=== PATIENT | male | born 1985 | race Caucasian/White ===

== ENCOUNTER → 2022-01-25 12:32 | Outpatient (CLI) | payer SELFPAY | PROVIDERS: Referring Provider Internal Medicine; Visit Provider Internal Medicine | DX: Z23 Encounter for immunization (principal) | CPT/HCPCS: 90471; 90686 ==

== ENCOUNTER → 2023-01-22 02:17 | Outpatient (CLI) | payer SELFPAY | PROVIDERS: Referring Provider Family Medicine; Visit Provider Family Medicine | DX: Z23 Encounter for immunization (principal) | CPT/HCPCS: 90471; 90686 ==

== ENCOUNTER → 2023-12-26 | Outpatient (CLI) | payer OTHER, SELFPAY | PROVIDERS: Referring Provider Internal Medicine; Visit Provider Internal Medicine | DX: Z23 Encounter for immunization (principal) | CPT/HCPCS: 90471; 90656 ==

== ENCOUNTER → 2024-05-05 09:07 | Outpatient (CLI) | payer OTHER, SELFPAY ==
[2024-05-05 10:14] LABS: Add Manual Diff / Slide Review NO; Basophils Absolute Auto 0 /uL (0-100); Basophils Percent Auto 0.6 % (0-2); Eosinophils Absolute Auto 100 /uL (0-450); Eosinophils Percent Auto 1.5 % (2-4); Hematocrit 43.8 % (41-53); Hemoglobin 14.7 g/dL (13.5-17.5); Lymphocytes Absolute Auto 2200 /uL (1100-4500); Lymphocytes Percent Auto 39.6 % (25-40); Mean Corpuscular HGB Conc 33.6 % (30-36); Mean Corpuscular Hemoglobin 29.8 PG (26-34); Mean Corpuscular Volume 88.8 fL (80-100); Monocytes Absolute Auto 400 /uL (0-900); Monocytes Percent Auto 7.4 % (3-14); Neutrophils Absolute Auto 2800 /uL (1500-7000); Neutrophils Percent Auto 50.9 % (50-75); Platelet Count 252 X10^3/uL (150-400); Red Blood Cell Count 4.93 X10^6/uL (4.5-5.9); Red Cell Distribution Width 13.4 % (11.6-14.8); White Blood Cell Count 5.6 X10^3/uL (4.5-11.0)
[2024-05-05 10:31] LABS: BUN Creatinine Ratio 20.9 (6-22); Blood Urea Nitrogen 18 mg/dL (9-20); Calcium 9.6 mg/dL (8.4-10.2); Carbon Dioxide 27 mmol/L (22-32); Chloride 103 mmol/L (98-107); Cholesterol 191 mg/dL (140-199); Estimated Glomerular Filt Rate > 60 mL/min (>60); Glucose 102 mg/dL (70-100); HDL Cholesterol 45 mg/dL (40-60); HEMOLYSIS < 15 (0-50); LDL Cholesterol Calculated 129 mg/dL (<100); Potassium 4.7 mmol/L (3.4-5.1); Sodium 140 mmol/L (137-145); Triglycerides 85 mg/dL (35-150)
[2024-05-05 11:02] LABS: TSH w/ Reflex to FT4 1.41 uIU/mL (0.47-4.68)
== END ==
PROVIDERS: PCP Nurse Practitioner Family; Referring Provider Nurse Practitioner Family; Visit Provider Nurse Practitioner Family
DX: R03.0 Elevated blood-pressure reading, without diagnosis of hypertension (principal)
CPT/HCPCS: 36415; 80048; 80061; 84443; 85025

== ENCOUNTER 2024-08-12 09:45 | Outpatient (RCR) | payer OTHER, SELFPAY ==
--- NOTE | 2024-05-13 18:21 | PT.OIE ---
Current Diagnoses Pain in left shoulder (05/13/24) Pain in right knee (05/13/24) Visit Care Team Role Provider Type Natividad Carson, COMMUNITY RELATIONS MANAGER-BC Attending Provider Advanced Electrical Linesworker Family Provider Primary Care Provider Referring Provider Specialty: Family Practice Address: [address] [place] [address], [id number] Phone: Fax: Email: [email or web address] Physical Therapy Initial Evaluation PT-OP-A Visit Information Start: 05/12/24 17:51 Freq: Status: Active Protocol: Document 05/13/24 13:01 [facility] (Rec: 05/13/24 13:50 [facility] [id number]) Out-Patient Physical Therapy Visit Information Visit Information Visit Type Initial Evaluation Visit Start Time 13:01 Visit Stop Time 13:46 Visit Number 1 Number of INSURANCE COUNSELOR Visits 0 PT-OP-B Current Condition Start: 05/12/24 17:51 Freq: Status: Active Protocol: Document 05/13/24 13:01 [facility] (Rec: 05/13/24 13:50 [facility] [id number]) Current Condition History of Current Condition Current Complaints R knee pain, L UE pain History of Current Condition in 2019, pt was in the middle of kneeling squat w/R knee fwd and went o stand up and felt a pop and there was a sharp pain in ant med knee. He was in the field so couldn't just go home. It has been consistant since. When squatting, down is fine but coming up there is a point where it feels like a knot trying to pull through the knee. MOst recently the post knee has been feeling swollen constantly. Friday, fri and friday works out (chest and legs alt). 5 days a week does stair stepper for 30 min a time which doesn't bother knee but does note the more swollen feeling in back of knee but after 15 min on the stair stepper, goes away. Sitting makes worse. Only early in the AM, nichoel gdown stairs, feels the ant knee pain. occasionally hikes on weekends but knee doesn't seem to bother him. maybe standing extended time can irritate knees but does note locking his knees. He is working on breaking that habit though. Back of the knee swelling started after [place] car ride [place] to [place] (2018)and went away and recently started coming back in past 2 weeks. Pt reports arm pain started in Jan 2024 but no ARELI. Feels like it is getting better but still there . initally was in post delt to elbow now more post elbow. incline chest press w/free weights, reverse flys, bench press-mostly exercises w/Habd and Hadd. cross arm stretch is very tight and bending elbow makes worse. Sleeping on it aggrevates it. holding a pillwo helps a lot. Taking shirts off inc pain Treatment Goals Patient/Caregiver Goals Be able to work, workout w/o pain, sleep without pain, improve mobility PT-OP-C Subjective Start: 05/12/24 17:51 Freq: Status: Active Protocol: Document 05/13/24 13:01 [facility] (Rec: 05/13/24 18:12 [facility] [id number]) Patient Questionnaires Lower Extremity Functional Scale LEFS Score 77 Quick Dash- Upper Extremity Quick Dash UE Score 18.18 PT-OP-D Balance Start: 05/12/24 17:51 Freq: Status: Active Protocol: Document 05/13/24 13:01 [facility] (Rec: 05/13/24 13:50 [facility] [id number]) Balance Tests Single Limb Standing Single Limb- Right >30 sec some pain in knee Single Limb- Left >30 sec PT-OP-G Mobility & Gait Start: 05/12/24 17:51 Freq: Status: Active Protocol: Document 05/13/24 13:01 [facility] (Rec: 05/13/24 13:50 [facility] [id number]) OP Gait Assessment Comments Gait Comments dec trunk motion, dec UE movement, dec slight R push off PT-OP-J Posture/Palpation/Skin Start: 05/12/24 17:51 Freq: Status: Active Protocol: Document 05/13/24 13:01 [facility] (Rec: 05/13/24 13:50 [facility] [id number]) Posture Evaluation Nallely Postural Classification System Nallely Postural Classifications Posterior/Anterior Elbow Flexion Test 0 Lumbar Protective Mechanism Left AP 1 Lumbar Protective Mechanism Right AP 1 Lumbar Protective Mechanism Left PA 1 Lumbar Protective Mechanism Right PA 1 Comments Posture Comments tends to hyperextend knees, high arches B but R collapse; R>L femoral IR, and tibial ER, L shoulder elevated and ant tipped, 1st rib elevated . R iliac crest elevated, equal greater trocanters PT-OP-K Range of Motion Start: 05/12/24 17:51 Freq: Status: Active Protocol: Document 05/13/24 13:01 [facility] (Rec: 05/13/24 13:50 [facility] [id number]) Cervical Spine Range of Motion Cervical Spine Active Degrees Flexion 68 Extension 60 Rotation Left 71 Rotation Right 74 Lateral Flexion Left 50 Lateral Flexion Right 51 Comments 51 deg R rot thoraicc, L 46 deg Shoulder Goniometric Range of Motion Shoulder ROM Limitations Comments equal ROM but painf ul w/flex, abd >90 and ER Ankle and Foot Goniometric Range of Motion Ankle and Foot ROM Limitations Comments >4 in knee to wall PT-OP-L Special Tests Start: 05/12/24 17:51 Freq: Status: Active Protocol: Document 05/13/24 13:01 [facility] (Rec: 05/13/24 13:50 [facility] [id number]) Special Tests Shoulder Special Tests [place] Impingement Comments positive l Neer Impingement Comments neg Knee Special Tests Hector Test Comments neg Thessaly Test 20 Degrees Comments neg R Harding Chondromalacia Comments positive R ligamentous testing Comments neg (ACL, PCL, MCL , LCL) SLR Comments WFL HS Kareem Comments L quad tightnes, R RF and iliacus Neural Special Tests- Upper Body nerve tension Comments neg ulnar and radial, pos median PT-OP-M Strength Start: 05/12/24 17:51 Freq: Status: Active Protocol: Document 05/13/24 13:01 [facility] (Rec: 05/13/24 13:50 [facility] [id number]) Shoulder Strength Shoulder Manual Muscle Testing Left Flexion 3+ Fair+ Extension 5 Normal Abduction (C5) 3+ Fair+ External Rotation 4- Good- Internal Rotation 4- Good- Elbow/Forearm Strength Elbow and Forearm Manual Muscle Testing Left Flexion (C6) 5 Normal Extension (C7) 5 Normal Pronation 5 Normal Supination 5 Normal Hip Strength Hip Manual Muscle Testing Right Flexion (L2) 4- Good- Extension (S1) 4- Good- Abduction 5 Normal Adduction 4+ Good+ External Rotation 5 Normal Internal Rotation 5 Normal Left Flexion (L2) 4 Good Extension (S1) 5 Normal Abduction 5 Normal Adduction 5 Normal External Rotation 5 Normal Internal Rotation 5 Normal Knee Strength Knee Manual Muscle Testing Right Flexion (S2) 4+ Good+ Extension (L3) 4+ Good+ Comments pain ext Left Flexion (S2) 5 Normal Extension (L3) 5 Normal Ankle/Foot Strength Ankle and Foot Manual Muscle Testing Left Dorsiflexion (L4) 5 Normal Plantarflexion (S1) 5 Normal Comments 20 heel raises Right Dorsiflexion (L4) 5 Normal Plantarflexion (S1) 5 Normal Comments 20 heel raises w/pain post knee and more difficulty PT-OP-Q Treatments Start: 05/12/24 17:51 Freq: Status: Active Protocol: Document 05/13/24 13:01 [facility] (Rec: 05/13/24 18:12 [facility] [id number]) Therapeutic Exercises Sidelying Exercises open book Side bilateral Reps/Minutes 8 plank Sidelying Exercise Name mod (knee on bench) coppenhagen plank Side right Reps/Minutes 10 sec x3 Self-Care/Home Management Treatment Education Other Education 8 min: edu re: n tension still found on LUE along w/positive for impingement/RC irritation except odd w/elbow pain presentation. Edu that thoracic stiffness is not helpingt his; edu how dysfunctional pelvic could be related to his knee pain. PT-OP-T Assessment and Plan Start: 05/12/24 17:51 Freq: Status: Active Protocol: Document 05/13/24 13:01 [facility] (Rec: 05/13/24 13:50 [facility] [id number]) Physical Therapy Assessment Rehab Potential Rehabilitation Potential Good Evaluation Complexity Number of Personal Factors/Comorbidities 3 or More Number of Body Systems Impaired 4 or More Clinical Presentation at Evaluation Evolving Impairments Impairments Activity Tolerance,Functional Activities,Functional Mobility ,Gait,Pain,Posture,ROM,Soft Tissue Mobility,Strength Goals squat Senior Living Goal (LTG) Pt will be able to squat w/o inc pain. LTG Duration 5/15 activity Short Term Goal (STG) Pt will be able to do all dressing w/o inc pain STG Duration 4/15 Behavior Interventionist Goal (LTG) Pt will be able to do all UE wt lifting including bench press and flys w/o inc pain LTG Duration 5/15 strength Senior Living Goal (LTG) Pt will score at least 4/5 EFT , LPM in all planes and 5/5 UE and LE MMT to show improved stability to allow return to typical activity. Assessment Summary Assessment Pt presents w/L post elbow pain for past 4.5 months w/ initial onset starting at post delt region but now focused at elbow w/posiitve testing for impingmeent and median n tension. He does have weakness of LUE and pain w/ROM along w /dec scap stability and dec core stability and inc kyphosis likely allr elated. He also has chronic knee pain w/hx of pop when doing split squats that seems to be worse recently along w/post knee tightness in the past 2 weeks. Pain worst when he stands up from squating and does have palpable swelling to R knee. He would benefit from skiled PT to address his deficits. Physical Therapy Plan Frequency and Duration Frequency of Treatment 1x/Week Duration of treatment (weeks) 10 Plan of Care Start Date 05/13/24 Plan of Care End Date 07/22/24 Therapeutic Interventions Therapeutic Interventions Balance Training,Gait Training ,Home Exercise Program,Joint Mobilizations,Manual Therapy, Neuromuscular Re-education, Patient/Caregiver Education, Self-Care/Home Management,Soft Tissue Mobilization,Taping, Therapeutic Activities, Therapeutic Exercises Modalities Cold Pack/Ice Massage,Electric Stimulation,Hot Packs, Infrared Therapy,Ultrasound Next Visit Focus/Plan Next Note Type Treatment Note Next Visit Plan review exercises, bridge, isometric flex core exercise manual to shoudler and 1st rib and thoracic cage and HEP for improved stability
--- NOTE | 2024-05-13 18:21 | PT.OPPOC ---
Physical, Occupational & Speech Therapy At [facility] Current Diagnoses Pain in left shoulder (05/13/24) Pain in right knee (05/13/24) Visit Care Team Role Provider Type TEMITOPE Sánchez Attending Provider Advanced Recruiting Assistant Family Provider Primary Care Provider Referring Provider Specialty: Family Practice Address: [address] [place] [address], [address] Phone: Fax: Email: [email or web address] Plan Of Care PT-OP-B Current Condition Start: 05/12/24 17:51 Freq: Status: Active Protocol: Document 05/13/24 13:01 [facility] (Rec: 05/13/24 13:50 [facility] [id number]) Current Condition History of Current Condition Current Complaints R knee pain, L UE pain History of Current Condition in 2018, pt was in the middle of kneeling squat w/R knee fwd and went o stand up and felt a pop and there was a sharp pain in ant med knee. He was in the field so couldn't just go home. It has been consistant since. When squatting, down is fine but coming up there is a point where it feels like a knot trying to pull through the knee. MOst recently the post knee has been feeling swollen constantly. Friday, fri and friday works out (chest and legs alt). 5 days a week does stair stepper for 30 min a time which doesn't bother knee but does note the more swollen feeling in back of knee but after 15 min on the stair stepper, goes away. Sitting makes worse. Only early in the AM, nichole gdown stairs, feels the ant knee pain. occasionally hikes on weekends but knee doesn't seem to bother him. maybe standing extended time can irritate knees but does note locking his knees. He is working on breaking that habit though. Back of the knee swelling started after long car ride [place] to [place] ([place])and went away and recently started coming back in past 2 weeks. Pt reports arm pain started in Jan 2024 but no ARELI. Feels like it is getting better but still there . initally was in post delt to elbow now more post elbow. incline chest press w/free weights, reverse flys, bench press-mostly exercises w/Habd and Hadd. cross arm stretch is very tight and bending elbow makes worse. Sleeping on it aggrevates it. holding a pillwo helps a lot. Taking shirts off inc pain Treatment Goals Patient/Caregiver Goals Be able to work, workout w/o pain, sleep without pain, improve mobility PT-OP-T Assessment and Plan Start: 05/12/24 17:51 Freq: Status: Active Protocol: Document 05/13/24 13:01 [facility] (Rec: 05/13/24 13:50 [facility] [id number]) Physical Therapy Assessment Rehab Potential Rehabilitation Potential Good Evaluation Complexity Number of Personal Factors/Comorbidities 3 or More Number of Body Systems Impaired 4 or More Clinical Presentation at Evaluation Evolving Impairments Impairments Activity Tolerance,Functional Activities,Functional Mobility ,Gait,Pain,Posture,ROM,Soft Tissue Mobility,Strength Goals squat Perinatal Technician Goal (LTG) Pt will be able to squat w/o inc pain. LTG Duration 5/15 activity Short Term Goal (STG) Pt will be able to do all dressing w/o inc pain STG Duration 4/15 Perinatal Technician Goal (LTG) Pt will be able to do all UE wt lifting including bench press and flys w/o inc pain LTG Duration 5/15 strength Perinatal Technician Goal (LTG) Pt will score at least 4/5 EFT , LPM in all planes and 5/5 UE and LE MMT to show improved stability to allow return to typical activity. Assessment Summary Assessment Pt presents w/L post elbow pain for past 4.5 months w/ initial onset starting at post delt region but now focused at elbow w/posiitve testing for impingmeent and median n tension. He does have weakness of LUE and pain w/ROM along w /dec scap stability and dec core stability and inc kyphosis likely allr elated. He also has chronic knee pain w/hx of pop when doing split squats that seems to be worse recently along w/post knee tightness in the past 2 weeks. Pain worst when he stands up from squating and does have palpable swelling to R knee. He would benefit from skiled PT to address his deficits. Physical Therapy Plan Frequency and Duration Frequency of Treatment 1x/Week Duration of treatment (weeks) 10 Plan of Care Start Date 05/13/24 Plan of Care End Date 07/22/24 Therapeutic Interventions Therapeutic Interventions Balance Training,Gait Training ,Home Exercise Program,Joint Mobilizations,Manual Therapy, Neuromuscular Re-education, Patient/Caregiver Education, Self-Care/Home Management,Soft Tissue Mobilization,Taping, Therapeutic Activities, Therapeutic Exercises Modalities Cold Pack/Ice Massage,Electric Stimulation,Hot Packs, Infrared Therapy,Ultrasound Next Visit Focus/Plan Next Note Type Treatment Note Next Visit Plan review exercises, bridge, isometric flex core exercise manual to shoudler and 1st rib and thoracic cage and HEP for improved stability Plan of Care Dates Plan of Care Start Date 05/13/24 Plan of Care End Date 07/22/24 Electronically Signed by: Maribell Beasley, PT 05/13/24 0768 If you are in agreement with this Plan of Care, please return a signed and dated copy. I have reviewed this Plan of Care and certify that the skilled therapy services above are required to meet the patient?s needs. Physician Signature Date Printed Name and Credentials Clinical Instructor Signature Printed Name and Credentials
--- NOTE | 2024-05-19 15:49 | PT.OTN ---
Current Diagnoses Pain in left shoulder (05/19/24) Pain in right knee (05/19/24) Physical Therapy Treatment Note PT-OP-A Visit Information Start: 05/12/24 17:51 Freq: Status: Active Protocol: Document 05/19/24 14:34 [facility] (Rec: 05/19/24 15:49 [facility] [id number]) Out-Patient Physical Therapy Visit Information Visit Information Visit Type Treatment Note Visit Start Time 14:35 Visit Stop Time 15:20 Visit Number 2 Number of FLOW FLOOR ATTENDANT Visits 0 PT-OP-B Current Condition Start: 05/12/24 17:51 Freq: Status: Active Protocol: Document 05/13/24 13:01 [facility] (Rec: 05/13/24 13:50 [facility] [id number]) Current Condition History of Current Condition Current Complaints R knee pain, L UE pain History of Current Condition in 2018, pt was in the middle of kneeling squat w/R knee fwd and went o stand up and felt a pop and there was a sharp pain in ant med knee. He was in the field so couldn't just go home. It has been consistant since. When squatting, down is fine but coming up there is a point where it feels like a knot trying to pull through the knee. MOst recently the post knee has been feeling swollen constantly. Friday, fri and friday works out (chest and legs alt). 5 days a week does stair stepper for 30 min a time which doesn't bother knee but does note the more swollen feeling in back of knee but after 15 min on the stair stepper, goes away. Sitting makes worse. Only early in the AM, nichole gdown stairs, feels the ant knee pain. occasionally hikes on weekends but knee doesn't seem to bother him. maybe standing extended time can irritate knees but does note locking his knees. He is working on breaking that habit though. Back of the knee swelling started after [place] ride [place] to [place] ([place]and went away and recently started coming back in past 2 weeks. Pt reports arm pain started in Jan 2024 but no ARELI. Feels like it is getting better but still there . initally was in post delt to elbow now more post elbow. incline chest press w/free weights, reverse flys, bench press-mostly exercises w/Habd and Hadd. cross arm stretch is very tight and bending elbow makes worse. Sleeping on it aggrevates it. holding a pillwo helps a lot. Taking shirts off inc pain Treatment Goals Patient/Caregiver Goals Be able to work, workout w/o pain, sleep without pain, improve mobility PT-OP-C Subjective Start: 05/12/24 17:51 Freq: Status: Active Protocol: Document 05/19/24 14:34 [facility] (Rec: [facility]19/24 [id number]PT Subjective Patient Comments Patient Comments Pt reports pain in knee is better since starting planks. pain in arm has been more in shoulder than elbow PT-OP-D Balance Start: 05/12/24 17:51 Freq: Status: Active Protocol: Document 05/13/24 13:01 [facility] (Rec: 05/13/24 13:50 [id number] Balance Tests Single Limb Standing Single Limb- Right >30 sec some pain in knee Single Limb- Left >30 sec PT-OP-G Mobility & Gait Start: 05/12/24 17:51 Freq: Status: Active Protocol: Document 05/13/24 13:01 [facility] (Rec: 05/13/24 13:50 [facility] [id number]) OP Gait Assessment Comments Gait Comments dec trunk motion, dec UE movement, dec slight R push off PT-OP-J Posture/Palpation/Skin Start: 05/12/24 17:51 Freq: Status: Active Protocol: Document 05/13/24 13:01 [facility] (Rec: 05/13/24 13:50 [id number] Posture Evaluation [facility] Postural Classification System [place] Postural Classifications Posterior/Anterior Elbow Flexion Test 0 Lumbar Protective Mechanism Left AP 1 Lumbar Protective Mechanism Right AP 1 Lumbar Protective Mechanism Left PA 1 Lumbar Protective Mechanism Right PA 1 Comments Posture Comments tends to hyperextend knees, high arches B but R collapse; R>L femoral IR, and tibial ER, L shoulder elevated and ant tipped, 1st rib elevated . R iliac crest elevated, equal greater trocanters PT-OP-K Range of Motion Start: 05/12/24 17:51 Freq: Status: Active Protocol: Document 05/13/24 13:01 [facility] (Rec: 05/13/24 13:50 [facility] [id number]) Cervical Spine Range of Motion Cervical Spine Active Degrees Flexion 68 Extension 60 Rotation Left 71 Rotation Right 74 Lateral Flexion Left 50 Lateral Flexion Right 51 Comments 51 deg R rot thoraicc, L 46 deg Shoulder Goniometric Range of Motion Shoulder ROM Limitations Comments equal ROM but painf ul w/flex, abd >90 and ER Ankle and Foot Goniometric Range of Motion Ankle and Foot ROM Limitations Comments >4 in knee to wall PT-OP-L Special Tests Start: 05/12/24 17:51 Freq: Status: Active Protocol: Document 05/13/24 13:01 [facility] (Rec: 05/13/24 13:50 [facility] [id number]) Special Tests Shoulder Special Tests Ivlla Jeffery Impingement Comments positive l Neer Impingement Comments neg Knee Special Tests Hector Test Comments neg Thessaly Test 20 Degrees Comments neg R Harding Chondromalacia Comments positive R ligamentous testing Comments neg (ACL, PCL, MCL , LCL) SLR Comments WFL HS Kareem Comments L quad tightnes, R RF and iliacus Neural Special Tests- Upper Body nerve tension Comments neg ulnar and radial, pos median PT-OP-M Strength Start: 05/12/24 17:51 Freq: Status: Active Protocol: Document 05/13/24 13:01 [facility] (Rec: 05/13/24 13:50 [facility] [id number]) Shoulder Strength Shoulder Manual Muscle Testing Left Flexion 3+ Fair+ Extension 5 Normal Abduction (C5) 3+ Fair+ External Rotation 4- Good- Internal Rotation 4- Good- Elbow/Forearm Strength Elbow and Forearm Manual Muscle Testing Left Flexion (C6) 5 Normal Extension (C7) 5 Normal Pronation 5 Normal Supination 5 Normal Hip Strength Hip Manual Muscle Testing Right Flexion (L2) 4- Good- Extension (S1) 4- Good- Abduction 5 Normal Adduction 4+ Good+ External Rotation 5 Normal Internal Rotation 5 Normal Left Flexion (L2) 4 Good Extension (S1) 5 Normal Abduction 5 Normal Adduction 5 Normal External Rotation 5 Normal Internal Rotation 5 Normal Knee Strength Knee Manual Muscle Testing Right Flexion (S2) 4+ Good+ Extension (L3) 4+ Good+ Comments pain ext Left Flexion (S2) 5 Normal Extension (L3) 5 Normal Ankle/Foot Strength Ankle and Foot Manual Muscle Testing Left Dorsiflexion (L4) 5 Normal Plantarflexion (S1) 5 Normal Comments 20 heel raises Right Dorsiflexion (L4) 5 Normal Plantarflexion (S1) 5 Normal Comments 20 heel raises w/pain post knee and more difficulty PT-OP-Q Treatments Start: 05/12/24 17:51 Freq: Status: Active Protocol: Document 05/19/24 14:34 [facility] (Rec: 05/19/24 15:49 [facility] [id number]) Therapeutic Exercises Supine Exercises core Supine Exercise Name DL isometric flex Side bilateral Reps/Minutes 30 sec bridge Reps/Minutes 6 Comments stopped d/t pain foam roll Supine Exercise Name 1. Habd 2. flex 3. abd 4. thoracic ext over Side bilateral Reps/Minutes 5 ea Sidelying Exercises open book Sidelying Exercise Name w/top LE tucked into thigh Side bilateral Reps/Minutes 5 ea plank Sidelying Exercise Name mod (knee on bench) coppenhagen plank Side right Reps/Minutes 10 sec Manual Therapy Treatment Consent Patient gave verbal consent for manual Yes treatment Soft Tissue Mobilization posterior Body Location L lat and rhomboids Mobilization Type Instrument Assisted,Rolling Intensity/Depth Moderate Body Position Sidelying Comments w/ post dep-cups and manual superior Body Location L scalene post, LS & UT distal Mobilization Type Rolling Intensity/Depth Moderate Body Position Sidelying Comments w/scap dep pec Body Location L major Mobilization Type Rolling,Sustained Pressure Intensity/Depth Moderate Body Position Hooklying Comments w/shoulder Joint Mobilizations ribs Comments PA L rib 6 w/scap dep GHJ Comments L post glide, distraction, lat gapping, inf glide, post w/ Hadd c/r PT-OP-T Assessment and Plan Start: 05/12/24 17:51 Freq: Status: Active Protocol: Document 05/19/24 14:34 [facility] (Rec: 05/19/24 15:49 [facility] [id number]) Physical Therapy Assessment Goals squat Half-Way Goal (LTG) Pt will be able to squat w/o inc pain. LTG Duration 5/15 activity Short Term Goal (STG) Pt will be able to do all dressing w/o inc pain STG Duration 4/15 Safety Teacher Goal (LTG) Pt will be able to do all UE wt lifting including bench press and flys w/o inc pain LTG Duration 5/15 strength Half-Way Goal (LTG) Pt will score at least 4/5 EFT , LPM in all planes and 5/5 UE and LE MMT to show improved stability to allow return to typical activity. Assessment Summary Assessment Pt is already noting improvement in knee pain w/ Keyser add planks and had much improved L shoulder mobility w/less pain after manual today. His pain has been less in his elbow and more in shoulder since IE. He has significant thoracic tightness likely related to pain. Physical Therapy Plan Frequency and Duration Frequency of Treatment 1x/Week Duration of treatment (weeks) 10 Plan of Care Start Date 05/13/24 Plan of Care End Date 07/22/24 Next Visit Focus/Plan Next Note Type Treatment Note Next Visit Plan review exercises; work on UE exercises for posture and improved shoulder mobility L; manual to upper thoracic, 1st rib, and shoulder mobs
--- NOTE | 2024-05-27 09:04 | PT.OTN ---
Current Diagnoses Pain in left shoulder (05/27/24) Pain in right knee (05/27/24) Physical Therapy Treatment Note PT-OP-A Visit Information Start: 05/12/24 17:51 Freq: Status: Active Protocol: Document 05/27/24 07:55 [facility] (Rec: 05/27/24 09:04 [facility] [id number]) Out-Patient Physical Therapy Visit Information Visit Information Visit Type Treatment Note Visit Start Time 08:00 Visit Stop Time 08:50 Visit Number 3 Number of POTATO CHIP SACKING MACHINE OPERATOR Visits 0 PT-OP-B Current Condition Start: 05/12/24 17:51 Freq: Status: Active Protocol: Document 05/13/24 13:01 [facility] (Rec: 05/13/24 13:50 [facility] [id number]) Current Condition History of Current Condition Current Complaints R knee pain, L UE pain History of Current Condition in 2018, pt was in the middle of kneeling squat w/R knee fwd and went o stand up and felt a pop and there was a sharp pain in ant med knee. He was in the field so couldn't just go home. It has been consistant since. When squatting, down is fine but coming up there is a point where it feels like a knot trying to pull through the knee. MOst recently the post knee has been feeling swollen constantly. Friday, fri and friday works out (chest and legs alt). 5 days a week does stair stepper for 30 min a time which doesn't bother knee but does note the more swollen feeling in back of knee but after 15 min on the stair stepper, goes away. Sitting makes worse. Only early in the AM, nichole gdown stairs, feels the ant knee pain. occasionally hikes on weekends but knee doesn't seem to bother him. maybe standing extended time can irritate knees but does note locking his knees. He is working on breaking that habit though. Back of the knee swelling started after [place] ride [place] ([place]and went away and recently started coming back in past 2 weeks. Pt reports arm pain started in Jan 2024 but no ARELI. Feels like it is getting better but still there . initally was in post delt to elbow now more post elbow. incline chest press w/free weights, reverse flys, bench press-mostly exercises w/Habd and Hadd. cross arm stretch is very tight and bending elbow makes worse. Sleeping on it aggrevates it. holding a pillwo helps a lot. Taking shirts off inc pain Treatment Goals Patient/Caregiver Goals Be able to work, workout w/o pain, sleep without pain, improve mobility PT-OP-C Subjective Start: 05/12/24 17:51 Freq: Status: Active Protocol: Document 05/27/24 07:55 [facility] (Rec: 05/27/24 09:04 [id number]-PT Subjective Patient Comments Patient Comments Pt reports he has rested this week and didn't do much so knee feels ok. Noticed his shoulder pain w/lifting backpack this AM in car. PT-OP-D Balance Start: 05/12/24 17:51 Freq: Status: Active Protocol: Document 05/13/24 13:01 [facility] (Rec: 05/13/24 13:50 [id number] Balance Tests Single Limb Standing Single Limb- Right >30 sec some pain in knee Single Limb- Left >30 sec PT-OP-G Mobility & Gait Start: 05/12/24 17:51 Freq: Status: Active Protocol: Document 05/13/24 13:01 [facility] (Rec: 05/13/24 13:50 [id number] OP Gait Assessment Comments Gait Comments dec trunk motion, dec UE movement, dec slight R push off PT-OP-J Posture/Palpation/Skin Start: 05/12/24 17:51 Freq: Status: Active Protocol: Document 05/13/24 13:01 [facility] (Rec: 05/13/24 13:50 [id number] Posture Evaluation [facility] Postural Classification System [facility] Postural Classifications Posterior/Anterior Elbow Flexion Test 0 Lumbar Protective Mechanism Left AP 1 Lumbar Protective Mechanism Right AP 1 Lumbar Protective Mechanism Left PA 1 Lumbar Protective Mechanism Right PA 1 Comments Posture Comments tends to hyperextend knees, high arches B but R collapse; R>L femoral IR, and tibial ER, L shoulder elevated and ant tipped, 1st rib elevated . R iliac crest elevated, equal greater trocanters PT-OP-K Range of Motion Start: 05/12/24 17:51 Freq: Status: Active Protocol: Document 05/13/24 13:01 [facility] (Rec: 05/13/24 13:50 [id number] Cervical Spine Range of Motion Cervical Spine Active Degrees Flexion 68 Extension 60 Rotation Left 71 Rotation Right 74 Lateral Flexion Left 50 Lateral Flexion Right 51 Comments 51 deg R rot thoraicc, L 46 deg Shoulder Goniometric Range of Motion Shoulder ROM Limitations Comments equal ROM but painf ul w/flex, abd >90 and ER Ankle and Foot Goniometric Range of Motion Ankle and Foot ROM Limitations Comments >4 in knee to wall PT-OP-L Special Tests Start: 05/12/24 17:51 Freq: Status: Active Protocol: Document 05/13/24 13:01 [facility] (Rec: 05/13/24 13:50 [facility] [id number]) Special Tests Shoulder Special Tests [place] Jeffery Impingement Comments positive l Neer Impingement Comments neg Knee Special Tests Hector Test Comments neg Thessaly Test 20 Degrees Comments neg R Harding Chondromalacia Comments positive R ligamentous testing Comments neg (ACL, PCL, MCL , LCL) SLR Comments WFL HS Kareem Comments L quad tightnes, R RF and iliacus Neural Special Tests- Upper Body nerve tension Comments neg ulnar and radial, pos median PT-OP-M Strength Start: 05/12/24 17:51 Freq: Status: Active Protocol: Document 05/13/24 13:01 [facility] (Rec: 05/13/24 13:50 [facility] [id number]) Shoulder Strength Shoulder Manual Muscle Testing Left Flexion 3+ Fair+ Extension 5 Normal Abduction (C5) 3+ Fair+ External Rotation 4- Good- Internal Rotation 4- Good- Elbow/Forearm Strength Elbow and Forearm Manual Muscle Testing Left Flexion (C6) 5 Normal Extension (C7) 5 Normal Pronation 5 Normal Supination 5 Normal Hip Strength Hip Manual Muscle Testing Right Flexion (L2) 4- Good- Extension (S1) 4- Good- Abduction 5 Normal Adduction 4+ Good+ External Rotation 5 Normal Internal Rotation 5 Normal Left Flexion (L2) 4 Good Extension (S1) 5 Normal Abduction 5 Normal Adduction 5 Normal External Rotation 5 Normal Internal Rotation 5 Normal Knee Strength Knee Manual Muscle Testing Right Flexion (S2) 4+ Good+ Extension (L3) 4+ Good+ Comments pain ext Left Flexion (S2) 5 Normal Extension (L3) 5 Normal Ankle/Foot Strength Ankle and Foot Manual Muscle Testing Left Dorsiflexion (L4) 5 Normal Plantarflexion (S1) 5 Normal Comments 20 heel raises Right Dorsiflexion (L4) 5 Normal Plantarflexion (S1) 5 Normal Comments 20 heel raises w/pain post knee and more difficulty PT-OP-Q Treatments Start: 05/12/24 17:51 Freq: Status: Active Protocol: Document 05/27/24 07:55 [facility] (Rec: 05/27/24 09:04 [facility] [id number]) Manual Therapy Treatment Consent Patient gave verbal consent for manual Yes treatment Soft Tissue Mobilization HS Body Location R Mobilization Type Rolling Comments w/ active knee ext in HS stretch and SLR superior Body Location L scalene post, LS & UT distal Mobilization Type Rolling Intensity/Depth Moderate Body Position Sidelying Comments w/scap dep- PT then POTATO CHIP SACKING MACHINE OPERATOR did distal ant scalene work pec Body Location L major/minor Mobilization Type Rolling,Sustained Pressure Intensity/Depth Moderate Body Position Hooklying Comments POTATO CHIP SACKING MACHINE OPERATOR Padmini Joint Mobilizations Scap Comments add and inf glides -POTATO CHIP SACKING MACHINE OPERATOR performed AC Comments L scap post c/r w/abd ribs Joint L Comments caudal rib 2 s/l c/r and rib 1 c/r GHJ Comments L post glide, distraction, lat gapping, inf glidec/r PT-OP-T Assessment and Plan Start: 05/12/24 17:51 Freq: Status: Active Protocol: Document 05/27/24 07:55 [facility] (Rec: 05/27/24 09:04 [facility] [id number]) Physical Therapy Assessment Goals squat Skilled Nursing Goal (LTG) Pt will be able to squat w/o inc pain. LTG Duration 5/15 activity Short Term Goal (STG) Pt will be able to do all dressing w/o inc pain STG Duration 4/15 Skilled Nursing Goal (LTG) Pt will be able to do all UE wt lifting including bench press and flys w/o inc pain LTG Duration 5/15 strength Skilled Nursing Goal (LTG) Pt will score at least 4/5 EFT , LPM in all planes and 5/5 UE and LE MMT to show improved stability to allow return to typical activity. Assessment Summary Assessment Pt started session w/post knee tightness w/squatting that improved after manual to none. Improved passive HAdd and flex to full PROM w/o pain at end range (started w/pain at end range) and improved abd but still limited PROM w/ tightness end range. Physical Therapy Plan Frequency and Duration Frequency of Treatment 1x/Week Duration of treatment (weeks) 10 Plan of Care Start Date 05/13/24 Plan of Care End Date 07/22/24 Next Visit Focus/Plan Next Note Type Treatment Note Next Visit Plan wall posture, work on UE exercises for posture and improved shoulder mobility L manual to upper thoracic, 1st rib, and shoulder mobs, manual to hip, innominate, and knee for knee tracking-look at lat lunge for tracking (pain w/ this)
--- NOTE | 2024-06-04 08:39 | PT.OTN ---
Current Diagnoses Pain in left shoulder (06/04/24) Pain in right knee (06/04/24) Physical Therapy Treatment Note PT-OP-A Visit Information Start: 05/12/24 17:51 Freq: Status: Active Protocol: Document 06/04/24 07:23 AB (Rec: 06/04/24 08:31 AB [id number]) Out-Patient Physical Therapy Visit Information Visit Information Visit Type Treatment Note Visit Note Visit [email or web address] Access Code: [email or web address] Visit Start Time 07:30 Visit Stop Time 08:17 Visit Number 4 Number of HOCKEY INSTRUCTOR Visits 1 PT-OP-B Current Condition Start: 05/12/24 17:51 Freq: Status: Active Protocol: Document 05/13/24 13:01 [facility] (Rec: 05/13/24 13:50 [facility] [id number]) Current Condition History of Current Condition Current Complaints R knee pain, L UE pain History of Current Condition in 2018, pt was in the middle of kneeling squat w/R knee fwd and went o stand up and felt a pop and there was a sharp pain in ant med knee. He was in the field so couldn't just go home. It has been consistant since. When squatting, down is fine but coming up there is a point where it feels like a knot trying to pull through the knee. MOst recently the post knee has been feeling swollen constantly. Friday, fri and friday works out (chest and legs alt). 5 days a week does stair stepper for 30 min a time which doesn't bother knee but does note the more swollen feeling in back of knee but after 15 min on the stair stepper, goes away. Sitting makes worse. Only early in the AM, nichole [employer] stairs, feels the ant knee pain. occasionally hikes on weekends but knee doesn't seem to bother him. maybe standing extended time can irritate knees but does note locking his knees. He is working on breaking that habit though. Back of the knee swelling started after [place] ride [place] ([place]and went away and recently started coming back in past 2 weeks. Pt reports arm pain started in Jan 2024 but no ARELI. Feels like it is getting better but still there . initally was in post delt to elbow now more post elbow. incline chest press w/free weights, reverse flys, bench press-mostly exercises w/Habd and Hadd. cross arm stretch is very tight and bending elbow makes worse. Sleeping on it aggrevates it. holding a pillwo helps a lot. Taking shirts off inc pain Treatment Goals Patient/Caregiver Goals Be able to work, workout w/o pain, sleep without pain, improve mobility PT-OP-C Subjective Start: 05/12/24 17:51 Freq: Status: Active Protocol: Document 06/04/24 07:23 AB (Rec: 06/04/24 08:31 AB [id number]) OP-PT Subjective Patient Comments Patient Comments Patient reports L shoulder is better, Right knee is the same . AROM L shoulder 126 deg flexion start of session. L knee with femoral IR and dynamic valgus during lateral lunge PT-OP-D Balance Start: 05/12/24 17:51 Freq: Status: Active Protocol: Document 05/13/24 13:01 [facility] (Rec: 05/13/24 13:50 [facility] [id number]) Balance Tests Single Limb Standing Single Limb- Right >30 sec some pain in knee Single Limb- Left >30 sec PT-OP-G Mobility & Gait Start: 05/12/24 17:51 Freq: Status: Active Protocol: Document 05/13/24 13:01 [facility] (Rec: 05/13/24 13:50 [facility] [id number]) OP Gait Assessment Comments Gait Comments dec trunk motion, dec UE movement, dec slight R push off PT-OP-J Posture/Palpation/Skin Start: 05/12/24 17:51 Freq: Status: Active Protocol: Document 05/13/24 13:01 [facility] (Rec: 05/13/24 13:50 [facility] [id number]) Posture Evaluation [facility] Postural Classification System Nallely Postural Classifications Posterior/Anterior Elbow Flexion Test 0 Lumbar Protective Mechanism Left AP 1 Lumbar Protective Mechanism Right AP 1 Lumbar Protective Mechanism Left PA 1 Lumbar Protective Mechanism Right PA 1 Comments Posture Comments tends to hyperextend knees, high arches B but R collapse; R>L femoral IR, and tibial ER, L shoulder elevated and ant tipped, 1st rib elevated . R iliac crest elevated, equal greater trocanters PT-OP-K Range of Motion Start: 05/12/24 17:51 Freq: Status: Active Protocol: Document 05/13/24 13:01 [facility] (Rec: 05/13/24 13:50 [facility] [id number]) Cervical Spine Range of Motion Cervical Spine Active Degrees Flexion 68 Extension 60 Rotation Left 71 Rotation Right 74 Lateral Flexion Left 50 Lateral Flexion Right 51 Comments 51 deg R rot thoraicc, L 46 deg Shoulder Goniometric Range of Motion Shoulder ROM Limitations Comments equal ROM but painf ul w/flex, abd >90 and ER Ankle and Foot Goniometric Range of Motion Ankle and Foot ROM Limitations Comments >4 in knee to wall PT-OP-L Special Tests Start: 05/12/24 17:51 Freq: Status: Active Protocol: Document 05/13/24 13:01 [facility] (Rec: 05/13/24 13:50 [facility] [id number]) Special Tests Shoulder Special Tests [place] Impingement Comments positive l Neer Impingement Comments neg Knee Special Tests Hector Test Comments neg Thessaly Test 20 Degrees Comments neg R Harding Chondromalacia Comments positive R ligamentous testing Comments neg (ACL, PCL, MCL , LCL) SLR Comments WFL HS Kareem Comments L quad tightnes, R RF and iliacus Neural Special Tests- Upper Body nerve tension Comments neg ulnar and radial, pos median PT-OP-M Strength Start: 05/12/24 17:51 Freq: Status: Active Protocol: Document 05/13/24 13:01 [facility] (Rec: 05/13/24 13:50 [facility] [id number]) Shoulder Strength Shoulder Manual Muscle Testing Left Flexion 3+ Fair+ Extension 5 Normal Abduction (C5) 3+ Fair+ External Rotation 4- Good- Internal Rotation 4- Good- Elbow/Forearm Strength Elbow and Forearm Manual Muscle Testing Left Flexion (C6) 5 Normal Extension (C7) 5 Normal Pronation 5 Normal Supination 5 Normal Hip Strength Hip Manual Muscle Testing Right Flexion (L2) 4- Good- Extension (S1) 4- Good- Abduction 5 Normal Adduction 4+ Good+ External Rotation 5 Normal Internal Rotation 5 Normal Left Flexion (L2) 4 Good Extension (S1) 5 Normal Abduction 5 Normal Adduction 5 Normal External Rotation 5 Normal Internal Rotation 5 Normal Knee Strength Knee Manual Muscle Testing Right Flexion (S2) 4+ Good+ Extension (L3) 4+ Good+ Comments pain ext Left Flexion (S2) 5 Normal Extension (L3) 5 Normal Ankle/Foot Strength Ankle and Foot Manual Muscle Testing Left Dorsiflexion (L4) 5 Normal Plantarflexion (S1) 5 Normal Comments 20 heel raises Right Dorsiflexion (L4) 5 Normal Plantarflexion (S1) 5 Normal Comments 20 heel raises w/pain post knee and more difficulty PT-OP-Q Treatments Start: 05/12/24 17:51 Freq: Status: Active Protocol: Document 06/04/24 07:23 AB (Rec: 06/04/24 08:31 AB [id number]) Therapeutic Exercises Supine Exercises foam roll Supine Exercise Name 1. Habd 2. flex 3. abd 4. thoracic ext over Side bilateral Reps/Minutes 5 ea Sidelying Exercises sidelying shoulder flexion Side left Reps/Minutes X8 Comments with facilitation at scapula open book Sidelying Exercise Name w/top LE tucked into thigh Side bilateral Reps/Minutes 5 ea Standing Exercises statue of liberty Standing Exercise Name 1. statue of liberty post 2. UE at side Resistance yellow theraband Comments not fritz squat with band Standing Exercise Name 1/2 to chair ) to chair seat not fritz Side bilateral Resistance level 3 band Equipment Used HEP Reps/Minutes 2 X 1o towel slide flexion Standing Exercise Name 1. towel L UE with step off and lower w/o wall 2. with band and lift off 3. Resistance level one band Equipment Used 1. X 2 2. X 2 3. X 5 Reps/Minutes 3. for HEP ie with bnd Comments verbal and visual cues, monitored for pain side lunges Side right Reps/Minutes X 2 X3 glute med isometric Standing Exercise Name HEP Side bilateral Reps/Minutes one minute each side Comments verbal and visual cues Manual Therapy Treatment Soft Tissue Mobilization posterior Body Location L lat and rhomboids, UT and levator scap Mobilization Type Cross-Friction,Rolling, Sustained Pressure Body Position Sidelying Comments and hooklying pec Body Location L major/minor Mobilization Type Rolling,Sustained Pressure Intensity/Depth Moderate Body Position Hooklying Joint Mobilizations Scap Joint L scap Grade IV Comments add and inf glides - AC Comments L scap post c/r w/abd GHJ Joint L shoulder Direction inf and AP Grade IV Body Position Hooklying Taping R knee Comments one I strip to improve tracking medially PT-OP-T Assessment and Plan Start: 05/12/24 17:51 Freq: Status: Active Protocol: Document 06/04/24 07:23 AB (Rec: 06/04/24 08:31 AB [id number]) Physical Therapy Assessment Goals squat [employer] Drawing Checker Goal (LTG) Pt will be able to squat w/o inc pain. LTG Duration 07/22 Assessment Summary Assessment Patient with 149 deg AROM Left shoulder flexion end of session, reports less pain with flexion end of session. Physical Therapy Plan Frequency and Duration Frequency of Treatment 1x/Week Duration of treatment (weeks) 10 Plan of Care Start Date 05/13/24 Plan of Care End Date 07/22/24 Therapeutic Interventions Therapeutic Interventions Balance Training,Gait Training ,Home Exercise Program,Joint Mobilizations,Manual Therapy, Neuromuscular Re-education, Patient/Caregiver Education, Self-Care/Home Management,Soft Tissue Mobilization,Taping, Therapeutic Activities, Therapeutic Exercises Modalities Cold Pack/Ice Massage,Electric Stimulation,Hot Packs, Infrared Therapy,Ultrasound Next Visit Focus/Plan Next Note Type Treatment Note Next Visit Plan wall posture, work on UE exercises for posture and improved shoulder mobility L manual to upper thoracic, 1st rib, and shoulder mobs, manual to hip, innominate, and knee for knee tracking-[facility] (pain w/ this)
--- NOTE | 2024-06-08 11:06 | PT.OTN ---
Current Diagnoses Pain in left shoulder (06/08/24) Pain in right knee (06/08/24) Physical Therapy Treatment Note PT-OP-A Visit Information Start: 05/12/24 17:51 Freq: Status: Active Protocol: Document 06/08/24 07:22 AB (Rec: 06/08/24 08:18 AB [id number]) Out-Patient Physical Therapy Visit Information Visit Information Visit Type Treatment Note Visit Note Visit [email or web address] Access Code: [email or web address] Visit Start Time 07:31 Visit Stop Time 08:16 Visit Number 5 Number of CARTON FOLDER Visits 2 PT-OP-B Current Condition Start: 05/12/24 17:51 Freq: Status: Active Protocol: Document 05/13/24 13:01 [facility] (Rec: 05/13/24 13:50 [facility] [id number]) Current Condition History of Current Condition Current Complaints R knee pain, L UE pain History of Current Condition in 2018, pt was in the middle of kneeling squat w/R knee fwd and went o stand up and felt a pop and there was a sharp pain in ant med knee. He was in the field so couldn't just go home. It has been consistant since. When squatting, down is fine but coming up there is a point where it feels like a knot trying to pull through the knee. MOst recently the post knee has been feeling swollen constantly. Friday, fri and friday works out (chest and legs alt). 5 days a week does stair stepper for 30 min a time which doesn't bother knee but does note the more swollen feeling in back of knee but after 15 min on the stair stepper, goes away. Sitting makes worse. Only early in the AM, nichole [employer] stairs, feels the ant knee pain. occasionally hikes on weekends but knee doesn't seem to bother him. maybe standing extended time can irritate knees but does note locking his knees. He is working on breaking that habit though. Back of the knee swelling started after [place] ride [place] to [place] ([place]and went away and recently started coming back in past 2 weeks. Pt reports arm pain started in Jan 2024 but no ARELI. Feels like it is getting better but still there . initally was in post delt to elbow now more post elbow. incline chest press w/free weights, reverse flys, bench press-mostly exercises w/Habd and Hadd. cross arm stretch is very tight and bending elbow makes worse. Sleeping on it aggrevates it. holding a pillwo helps a lot. Taking shirts off inc pain Treatment Goals Patient/Caregiver Goals Be able to work, workout w/o pain, sleep without pain, improve mobility PT-OP-C Subjective Start: 05/12/24 17:51 Freq: Status: Active Protocol: Document 06/08/24 07:22 AB (Rec: 06/08/24 08:18 AB [id number]) OP-PT Subjective Patient Comments Patient Comments Joss reports less shoulder pain when working out over weekend. Patient also reports the tape was helpful. AROM left shoulder flexion 148 deg start of session. PT-OP-D Balance Start: 05/12/24 17:51 Freq: Status: Active Protocol: Document 05/13/24 13:01 [facility] (Rec: 05/13/24 13:50 [facility] [id number]) Balance Tests Single Limb Standing Single Limb- Right >30 sec some pain in knee Single Limb- Left >30 sec PT-OP-G Mobility & Gait Start: 05/12/24 17:51 Freq: Status: Active Protocol: Document 05/13/24 13:01 [facility] (Rec: 05/13/24 13:50 [facility] [id number]) OP Gait Assessment Comments Gait Comments dec trunk motion, dec UE movement, dec slight R push off PT-OP-J Posture/Palpation/Skin Start: 05/12/24 17:51 Freq: Status: Active Protocol: Document 05/13/24 13:01 [facility] (Rec: 05/13/24 13:50 [facility] [id number]) Posture Evaluation [facility] Postural Classification System Nallely Postural Classifications Posterior/Anterior Elbow Flexion Test 0 Lumbar Protective Mechanism Left AP 1 Lumbar Protective Mechanism Right AP 1 Lumbar Protective Mechanism Left PA 1 Lumbar Protective Mechanism Right PA 1 Comments Posture Comments tends to hyperextend knees, high arches B but R collapse; R>L femoral IR, and tibial ER, L shoulder elevated and ant tipped, 1st rib elevated . R iliac crest elevated, equal greater trocanters PT-OP-K Range of Motion Start: 05/12/24 17:51 Freq: Status: Active Protocol: Document 05/13/24 13:01 [facility] (Rec: 05/13/24 13:50 [facility] [id number]) Cervical Spine Range of Motion Cervical Spine Active Degrees Flexion 68 Extension 60 Rotation Left 71 Rotation Right 74 Lateral Flexion Left 50 Lateral Flexion Right 51 Comments 51 deg R rot thoraicc, L 46 deg Shoulder Goniometric Range of Motion Shoulder ROM Limitations Comments equal ROM but painf ul w/flex, abd >90 and ER Ankle and Foot Goniometric Range of Motion Ankle and Foot ROM Limitations Comments >4 in knee to wall PT-OP-L Special Tests Start: 05/12/24 17:51 Freq: Status: Active Protocol: Document 05/13/24 13:01 [facility] (Rec: 05/13/24 13:50 [facility] [id number]) Special Tests Shoulder Special Tests [place] Impingement Comments positive l Neer Impingement Comments neg Knee Special Tests Hector Test Comments neg Thessaly Test 20 Degrees Comments neg R [place] Chondromalacia Comments positive R ligamentous testing Comments neg (ACL, PCL, MCL , LCL) SLR Comments WFL HS Kareem Comments L quad tightnes, R RF and iliacus Neural Special Tests- Upper Body nerve tension Comments neg ulnar and radial, pos median PT-OP-M Strength Start: 05/12/24 17:51 Freq: Status: Active Protocol: Document 05/13/24 13:01 [facility] (Rec: 05/13/24 13:50 [facility] [id number]) Shoulder Strength Shoulder Manual Muscle Testing Left Flexion 3+ Fair+ Extension 5 Normal Abduction (C5) 3+ Fair+ External Rotation 4- Good- Internal Rotation 4- Good- Elbow/Forearm Strength Elbow and Forearm Manual Muscle Testing Left Flexion (C6) 5 Normal Extension (C7) 5 Normal Pronation 5 Normal Supination 5 Normal Hip Strength Hip Manual Muscle Testing Right Flexion (L2) 4- Good- Extension (S1) 4- Good- Abduction 5 Normal Adduction 4+ Good+ External Rotation 5 Normal Internal Rotation 5 Normal Left Flexion (L2) 4 Good Extension (S1) 5 Normal Abduction 5 Normal Adduction 5 Normal External Rotation 5 Normal Internal Rotation 5 Normal Knee Strength Knee Manual Muscle Testing Right Flexion (S2) 4+ Good+ Extension (L3) 4+ Good+ Comments pain ext Left Flexion (S2) 5 Normal Extension (L3) 5 Normal Ankle/Foot Strength Ankle and Foot Manual Muscle Testing Left Dorsiflexion (L4) 5 Normal Plantarflexion (S1) 5 Normal Comments 20 heel raises Right Dorsiflexion (L4) 5 Normal Plantarflexion (S1) 5 Normal Comments 20 heel raises w/pain post knee and more difficulty PT-OP-Q Treatments Start: 05/12/24 17:51 Freq: Status: Active Protocol: Document 06/08/24 07:22 AB (Rec: 06/08/24 08:18 AB [id number]) Therapeutic Exercises Supine Exercises foam roll Supine Exercise Name 1. alt UE flexion 2. Mini band Side bilateral Reps/Minutes x 10 each Sidelying Exercises sidelying shoulder ER Sidelying Exercise Name with and without band Resistance 1 lb Reps/Minutes X10 with band X 10 wit weight open book Sidelying Exercise Name w/top LE tucked into thigh Side bilateral Reps/Minutes 10 ea Standing Exercises side lunges Side bilateral Reps/Minutes X 1 on floor X 5 on BOSU blue side Comments MOnitored for pain glute med isometric Standing Exercise Name HEP Side bilateral Reps/Minutes one minute each side Comments verbal and visual cues Manual Therapy Treatment Consent Patient gave verbal consent for manual Yes treatment Soft Tissue Mobilization HS Body Location R Mobilization Type Cross-Friction,Rolling posterior Body Location L lat and rhomboids, UT and levator scap Mobilization Type Cross-Friction,Rolling, Sustained Pressure Body Position Sidelying Comments and hooklying superior Body Location LS & UT distal Mobilization Type Rolling Intensity/Depth Moderate Body Position Sidelying pec Body Location L major/minor Mobilization Type Rolling,Sustained Pressure Intensity/Depth Moderate Body Position Hooklying Joint Mobilizations R patella Joint CW CCW med Grade III Reps/Duration X5 each Scap Joint L scap Grade IV Comments add and inf glides - GHJ Joint L shoulder Direction inf and AP Grade IV Body Position Hooklying Taping R knee Comments one I strip to improve tracking medially PT-OP-T Assessment and Plan Start: 05/12/24 17:51 Freq: Status: Active Protocol: Document 06/08/24 07:22 AB (Rec: 06/08/24 08:18 AB [id number]) Physical Therapy Assessment Goals squat Usp Goal (LTG) Pt will be able to squat w/o inc pain. LTG Duration 5/15 activity Short Term Goal (STG) Pt will be able to do all dressing w/o inc pain STG Duration 4/15 Usp Goal (LTG) Pt will be able to do all UE wt lifting including bench press and flys w/o inc pain LTG Duration 5/15 strength Cupola Melter Goal (LTG) Pt will score at least 4/5 EFT , LPM in all planes and 5/5 UE and LE MMT to show improved stability to allow return to typical activity. Assessment Summary Assessment Patient with AROM 151 deg AROM end of session. Patient reports less pain with lunges, but continues to feel it medial right knee with deeper lunge. Physical Therapy Plan Frequency and Duration Frequency of Treatment 1x/Week Duration of treatment (weeks) 10 Plan of Care Start Date 05/13/24 Plan of Care End Date 07/22/24 Next Visit Focus/Plan Next Note Type Treatment Note Next Visit Plan wall posture, work on UE exercises for posture and improved shoulder mobility L manual to upper thoracic, 1st rib, and shoulder mobs, manual to hip, innominate, and knee for knee tracking-look at lat lunge for tracking (pain w/ this)
--- NOTE | 2024-06-16 08:21 | PT.OTN ---
Current Diagnoses Pain in left shoulder (06/16/24) Pain in right knee (06/16/24) Physical Therapy Treatment Note PT-OP-A Visit Information Start: 05/12/24 17:51 Freq: Status: Active Protocol: Document 06/16/24 07:34 [facility] (Rec: 06/16/24 08:21 [facility] [id number]) Out-Patient Physical Therapy Visit Information Visit Information Visit Type Progress Note Visit Start Time 07:35 Visit Stop Time 08:15 Visit Number 6 Number of DATE NIGHT CAREGIVER Visits 0 PT-OP-B Current Condition Start: 05/12/24 17:51 Freq: Status: Active Protocol: Document 05/13/24 13:01 [facility] (Rec: 05/13/24 13:50 [facility] [id number]) Current Condition History of Current Condition Current Complaints R knee pain, L UE pain History of Current Condition in 2018, pt was in the middle of kneeling squat w/R knee fwd and went o stand up and felt a pop and there was a sharp pain in ant med knee. He was in the field so couldn't just go home. It has been consistant since. When squatting, down is fine but coming up there is a point where it feels like a knot trying to pull through the knee. MOst recently the post knee has been feeling swollen constantly. Friday, fri and friday works out (chest and legs alt). 5 days a week does stair stepper for 30 min a time which doesn't bother knee but does note the more swollen feeling in back of knee but after 15 min on the stair stepper, goes away. Sitting makes worse. Only early in the AM, nichole gdown stairs, feels the ant knee pain. occasionally hikes on weekends but knee doesn't seem to bother him. maybe standing extended time can irritate knees but does note locking his knees. He is working on breaking that habit though. Back of the knee swelling started after [place] ride [place]and went away and recently started coming back in past 2 weeks. Pt reports arm pain started in Jan 2024 but no ARELI. Feels like it is getting better but still there . initally was in post delt to elbow now more post elbow. incline chest press w/free weights, reverse flys, bench press-mostly exercises w/Habd and Hadd. cross arm stretch is very tight and bending elbow makes worse. Sleeping on it aggrevates it. holding a pillwo helps a lot. Taking shirts off inc pain Treatment Goals Patient/Caregiver Goals Be able to work, workout w/o pain, sleep without pain, improve mobility PT-OP-C Subjective Start: 05/12/24 17:51 Freq: Status: Active Protocol: Document 06/16/24 07:34 [facility] (Rec: 06/16/24 08:[id number]-PT Subjective Patient Comments Patient Comments Pt reports arm feels a lot better. Still some movements that are limiting. Knee has been good and lifting light and no pain w/knee Patient Reported Progress Improving PT-OP-D Balance Start: 05/12/24 17:51 Freq: Status: Active Protocol: Document 05/13/24 13:01 [facility] (Rec: 05/13/24 13:50 [id number] Balance Tests Single Limb Standing Single Limb- Right >30 sec some pain in knee Single Limb- Left >30 sec PT-OP-G Mobility & Gait Start: 05/12/24 17:51 Freq: Status: Active Protocol: Document 05/13/24 13:01 [facility] (Rec: 05/13/24 13:50 [facility] [id number]) OP Gait Assessment Comments Gait Comments dec trunk motion, dec UE movement, dec slight R push off PT-OP-J Posture/Palpation/Skin Start: 05/12/24 17:51 Freq: Status: Active Protocol: Document 06/16/24 07:34 [facility] (Rec: 06/16/24 08:21 [facility] [id number]) Posture Evaluation [facility] Postural Classification System Nallely Postural Classifications Posterior/Anterior Elbow Flexion Test 3 Lumbar Protective Mechanism Left AP 3 Lumbar Protective Mechanism Right AP 3 Lumbar Protective Mechanism Left PA 4 Lumbar Protective Mechanism Right PA 4 PT-OP-K Range of Motion Start: 05/12/24 17:51 Freq: Status: Active Protocol: Document 05/13/24 13:01 [facility] (Rec: 05/13/24 13:50 [facility] [id number]) Cervical Spine Range of Motion Cervical Spine Active Degrees Flexion 68 Extension 60 Rotation Left 71 Rotation Right 74 Lateral Flexion Left 50 Lateral Flexion Right 51 Comments 51 deg R rot thoraicc, L 46 deg Shoulder Goniometric Range of Motion Shoulder ROM Limitations Comments equal ROM but painf ul w/flex, abd >90 and ER Ankle and Foot Goniometric Range of Motion Ankle and Foot ROM Limitations Comments >4 in knee to wall PT-OP-L Special Tests Start: 05/12/24 17:51 Freq: Status: Active Protocol: Document 05/13/24 13:01 [facility] (Rec: 05/13/24 13:50 [facility] [id number]) Special Tests Shoulder Special Tests [place] Impingement Comments positive l Neer Impingement Comments neg Knee Special Tests Hector Test Comments neg Thessaly Test 20 Degrees Comments neg R Harding Chondromalacia Comments positive R ligamentous testing Comments neg (ACL, PCL, MCL , LCL) SLR Comments WFL HS Kareem Comments L quad tightnes, R RF and iliacus Neural Special Tests- Upper Body nerve tension Comments neg ulnar and radial, pos median PT-OP-M Strength Start: 05/12/24 17:51 Freq: Status: Active Protocol: Document 06/16/24 07:34 [facility] (Rec: 06/16/24 08:21 [facility] [id number]) Shoulder Strength Shoulder Manual Muscle Testing Left Flexion 4+ Good+ Extension 5 Normal Abduction (C5) 4+ Good+ Adduction 5 Normal External Rotation 4+ Good+ Internal Rotation 4+ Good+ Horizontal Abduction 5 Normal Horizontal Adduction 5 Normal Comments pain w/rotations Hip Strength Hip Manual Muscle Testing Right Flexion (L2) 5 Normal Extension (S1) 5 Normal Abduction 5 Normal Adduction 5 Normal External Rotation 5 Normal Internal Rotation 5 Normal Left Flexion (L2) 5 Normal Extension (S1) 5 Normal Abduction 5 Normal Adduction 5 Normal External Rotation 5 Normal Internal Rotation 5 Normal Knee Strength Knee Manual Muscle Testing Right Flexion (S2) 5 Normal Extension (L3) 5 Normal Left Flexion (S2) 5 Normal Extension (L3) 5 Normal Ankle/Foot Strength Ankle and Foot Manual Muscle Testing Right Dorsiflexion (L4) 5 Normal Plantarflexion (S1) 5 Normal Comments 20 heel raises PT-OP-Q Treatments Start: 05/12/24 17:51 Freq: Status: Active Protocol: Document 06/16/24 07:34 [facility] (Rec: 06/16/24 08:21 [facility] [id number]) Therapeutic Exercises Supine Exercises bridge Supine Exercise Name segmental lift Side bilateral Reps/Minutes 10 Prone Exercises plank Prone Exercise Name forearm and feet w/alt hip ext Side bilateral Reps/Minutes 6 Standing Exercises paloff press Standing Exercise Name in mini squat w/lift overhead Side bilateral Equipment Used 2 [place] bands Reps/Minutes 10 B Other Exercises quadruped Other Exercise Name 1. bear plank 2. bear plank walk fwd/back Side bilateral Reps/Minutes 1. 30 sec 2. 15 ft ea isometrics Other Exercise Name MMT UE and LE , EFT and LPM Side bilateral Manual Therapy Treatment Consent Patient gave verbal consent for manual Yes treatment Soft Tissue Mobilization posterior Comments Post delt and lat cupping in prone prop w/rotation of torso superior Body Location LS & UT distal Mobilization Type Rolling Intensity/Depth Moderate Body Position Sidelying pec Body Location L major/minor Mobilization Type Rolling,Sustained Pressure Intensity/Depth Moderate Body Position Hooklying Comments w/abd Joint Mobilizations thoracic Comments PA T4-6 prone w/breath work ribs Comments caudal rib 1 c/r supine, L ribs SB L 7 and 8 c/r PT-OP-T Assessment and Plan Start: 05/12/24 17:51 Freq: Status: Active Protocol: Document 06/16/24 07:34 [facility] (Rec: 06/16/24 08:21 [facility] [id number]) Physical Therapy Assessment Goals squat Energy Efficiency Specialist Goal (LTG) Pt will be able to squat w/o inc pain. 06/16-improving w/light weight LTG Duration 5/15 activity Short Term Goal (STG) Pt will be able to do all dressing w/o inc pain STG Duration achieved 06/16 Senior Living Goal (LTG) Pt will be able to do all UE wt lifting including bench press and flys w/o inc pain 06/16-light weight w/o issue LTG Duration 5/15 strength Senior Living Goal (LTG) Pt will score at least 4/5 EFT , LPM in all planes and 5/5 UE and LE MMT to show improved stability to allow return to typical activity. 06/16-improving Assessment Summary Assessment Pt making excellent progress w /PT and is improving with strength, activity tolerance and mobility. He is able to squat w/less pain and is starting trade embalmer weight bench pressing. ADLs are now less painful also. Cont PT to dec pain Physical Therapy Plan Frequency and Duration Frequency of Treatment 1x/Week Duration of treatment (weeks) 10 Plan of Care Start Date 05/13/24 Plan of Care End Date 07/22/24 Next Visit Focus/Plan Next Note Type Treatment Note Next Visit Plan wall posture, review core , cont to work LUE and thoracic mobility
--- NOTE | 2024-06-23 08:40 | PT.OTN ---
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 He was in the field so couldn't just go home. It has been consistant since. When squatting, down is fine but coming up there is a point where it feels like a knot trying to pull through the knee. MOst recently the post knee has been feeling swollen constantly. Friday, fri and friday works out (chest and legs alt). 5 days a week does stair stepper for 30 min a time which doesn't bother knee but does note the more swollen feeling in back of knee but after 15 min on the stair stepper, goes away. Sitting makes worse. Only early in the AM, nichole gdown stairs, feels the ant knee pain. occasionally hikes on weekends but knee doesn't seem to bother him. maybe standing extended time can irritate knees but does note locking his knees. He is working on breaking that habit though. Back of the knee swelling started after [place] ride [place] to [place] ([place]and went away and recently started coming back in past 2 weeks. Pt reports arm pain started in Jan 2024 but no ARELI. Feels like it is getting better but still there . initally was in post delt to elbow now more post elbow. incline chest press w/free weights, reverse flys, bench press-mostly exercises w/Habd and Hadd. cross arm stretch is very tight and bending elbow makes worse. Sleeping on it aggrevates it. holding a pillwo helps a lot. Taking shirts off inc pain Treatment Goals Patient/Caregiver Goals Be able to work, workout w/o pain, sleep without pain, improve mobility PT-OP-C Subjective Start: 05/12/24 17:51 Freq: Status: Active Protocol: Document 06/23/24 07:26 [facility] (Rec: 06/23/24 08:40 AB Laptop) OP-PT Subjective Patient Comments Patient Comments Jordan reports discomfort end ROM flexion L shoulder persists, but is able to use weight with UE now, also R knee pain occurs at end of work out now. Patient performs lateral lunge right and has sensation of something holding partially/mild discomfort medial R knee. AROM L shoulder flexion 150 deg start of session. PT-OP-D Balance Start: 05/12/24 17:51 Freq: Status: Active Protocol: Document 05/13/24 13:01 [facility] (Rec: 05/13/24 13:50 [facility] [id number]) Balance Tests Single Limb Standing Single Limb- Right >30 sec some pain in knee Single Limb- Left >30 sec PT-OP-G Mobility & Gait Start: 05/12/24 17:51 Freq: Status: Active Protocol: Document 05/13/24 13:01 [facility] (Rec: 05/13/24 13:50 [facility] [id number]) OP Gait Assessment Comments Gait Comments dec trunk motion, dec UE movement, dec slight R push off PT-OP-J Posture/Palpation/Skin Start: 05/12/24 17:51 Freq: Status: Active Protocol: Document 06/16/24 07:34 [facility] (Rec: 06/16/24 08:21 [facility] [id number]) Posture Evaluation [place] Postural Classification System Nallely Postural Classifications Posterior/Anterior Elbow Flexion Test 3 Lumbar Protective Mechanism Left AP 3 Lumbar Protective Mechanism Right AP 3 Lumbar Protective Mechanism Left PA 4 Lumbar Protective Mechanism Right PA 4 PT-OP-K Range of Motion Start: 05/12/24 17:51 Freq: Status: Active Protocol: Document 05/13/24 13:01 [facility] (Rec: 05/13/24 13:50 [facility] [id number]) Cervical Spine Range of Motion Cervical Spine Active Degrees Flexion 68 Extension 60 Rotation Left 71 Rotation Right 74 Lateral Flexion Left 50 Lateral Flexion Right 51 Comments 51 deg R rot thoraicc, L 46 deg Shoulder Goniometric Range of Motion Shoulder ROM Limitations Comments equal ROM but painf ul w/flex, abd >90 and ER Ankle and Foot Goniometric Range of Motion Ankle and Foot ROM Limitations Comments >4 in knee to wall PT-OP-L Special Tests Start: 05/12/24 17:51 Freq: Status: Active Protocol: Document 05/13/24 13:01 [facility] (Rec: 05/13/24 13:50 [facility] [id number]) Special Tests Shoulder Special Tests [place] Impingement Comments positive l Neer Impingement Comments neg Knee Special Tests Hector Test Comments neg Thessaly Test 20 Degrees Comments neg R [place] Chondromalacia Comments positive R ligamentous testing Comments neg (ACL, PCL, MCL , LCL) SLR Comments WFL HS Kareem Comments L quad tightnes, R RF and iliacus Neural Special Tests- Upper Body nerve tension Comments neg ulnar and radial, pos median PT-OP-M Strength Start: 05/12/24 17:51 Freq: Status: Active Protocol: Document 06/16/24 07:34 [facility] (Rec: 06/16/24 08:21 [facility] [id number]) Shoulder Strength Shoulder Manual Muscle Testing Left Flexion 4+ Good+ Extension 5 Normal Abduction (C5) 4+ Good+ Adduction 5 Normal External Rotation 4+ Good+ Internal Rotation 4+ Good+ Horizontal Abduction 5 Normal Horizontal Adduction 5 Normal Comments pain w/rotations Hip Strength Hip Manual Muscle Testing Right Flexion (L2) 5 Normal Extension (S1) 5 Normal Abduction 5 Normal Adduction 5 Normal External Rotation 5 Normal Internal Rotation 5 Normal Left Flexion (L2) 5 Normal Extension (S1) 5 Normal Abduction 5 Normal Adduction 5 Normal External Rotation 5 Normal Internal Rotation 5 Normal Knee Strength Knee Manual Muscle Testing Right Flexion (S2) 5 Normal Extension (L3) 5 Normal Left Flexion (S2) 5 Normal Extension (L3) 5 Normal Ankle/Foot Strength Ankle and Foot Manual Muscle Testing Right Dorsiflexion (L4) 5 Normal Plantarflexion (S1) 5 Normal Comments 20 heel raises PT-OP-Q Treatments Start: 05/12/24 17:51 Freq: Status: Active Protocol: Document 06/23/24 07:26 [facility] (Rec: 06/23/24 08:40 AB Laptop) Therapeutic Exercises Supine Exercises core Supine Exercise Name deep neck flexor head lift Side bilateral Reps/Minutes 7 sec X 10 bridge Supine Exercise Name HEP foam roll Supine Exercise Name 1. alt UE flexion Pe stretch Side bilateral Reps/Minutes x 10 each Prone Exercises pigeon pose with thread the needle Prone Exercise Name HEP Side bilateral Reps/Minutes X 5 each side Comments verbal and visual cues plank Prone Exercise Name side plank ( forearm plank with alt hip ext to HEP) Reps/Minutes 7 sec X 10 Comments verbal cues Sidelying Exercises plank Sidelying Exercise Name 1. side plank Side bilateral Reps/Minutes 7 sec X 8 Sitting Exercises core warm up Sitting Exercise Name shoulder flexion and trunk rotation Side bilateral Reps/Minutes X5 X 5 Comments verbal and visual cues Standing Exercises seated piriformis stretch Standing Exercise Name HEP Side bilateral Reps/Minutes 60 sec each LE X 1 Comments verbal cues Other Exercises quadruped Other Exercise Name 1. UE lift 2 LE lift ( bear walk fwd and back to HEP) Reps/Minutes X8 for 7 sec Comments Verbal cues to avoid extending lumbar spine Manual Therapy Treatment Consent Patient gave verbal consent for manual Yes treatment Soft Tissue Mobilization posterior Body Location L lat and rhomboids, UT and levator scap Mobilization Type Cross-Friction,Rolling, Sustained Pressure Intensity/Depth Moderate Body Position Sidelying pec Body Location L major/minor Mobilization Type Rolling,Sustained Pressure Intensity/Depth Moderate Body Position Hooklying Comments w/abd Joint Mobilizations R patella Joint CW CCW med Grade III Reps/Duration X5 each Scap Joint L scap Grade IV Comments add and inf glides - GHJ Joint L shoulder Direction inf and AP Grade IV Body Position Hooklying Taping R knee Comments one I strip to improve tracking medially Manual Techniques PROM L shoulder Type with R LE in IR with PROM L shoulder Reps/Duration X2 PT-OP-T Assessment and Plan Start: 05/12/24 17:51 Freq: Status: Active Protocol: Document 06/23/24 07:26 [facility] (Rec: 06/23/24 08:40 AB Laptop) Physical Therapy Assessment Goals squat Nursing Home Goal (LTG) Pt will be able to squat w/o inc pain. 06/16-improving w/light weight LTG Duration 5/15 activity Short Term Goal (STG) Pt will be able to do all dressing w/o inc pain STG Duration achieved 06/16 Manager Architectural Goal (LTG) Pt will be able to do all UE wt lifting including bench press and flys w/o inc pain 06/16-light weight w/o issue LTG Duration 07/22 strength Manager Architectural Goal (LTG) Pt will score at least 4/5 EFT , LPM in all planes and 5/5 UE and LE MMT to show improved stability to allow return to typical activity. 06/16-improving Assessment Summary Assessment AROM L shoulder flexion 154 deg end of session with reports of decreased resistance to reach end of range, also reports lateral lunge right is with much less discomfort. Physical Therapy Plan Frequency and Duration Frequency of Treatment 1x/Week Duration of treatment (weeks) 10 Plan of Care Start Date 05/13/24 Plan of Care End Date 07/22/24 Next Visit Focus/Plan Next Note Type Treatment Note Next Visit Plan wall posture, review core , cont to work LUE and thoracic mobility/assess fritz to thread the needle in pigeon pose.
--- NOTE | 2024-06-29 08:41 | PT.OTN ---
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 (Rec: 05/13/24 13:50 [facility] [id number]) Current Condition History of Current Condition Current Complaints R knee pain, L UE pain History of Current Condition in 2018, pt was in the middle of kneeling squat w/R knee fwd and went o stand up and felt a pop and there was a sharp pain in ant med knee. He was in the field so couldn't just go home. It has been consistant since. When squatting, down is fine but coming up there is a point where it feels like a knot trying to pull through the knee. MOst recently the post knee has been feeling swollen constantly. Friday, fri and friday works out (chest and legs alt). 5 days a week does stair stepper for 30 min a time which doesn't bother knee but does note the more swollen feeling in back of knee but after 15 min on the stair stepper, goes away. Sitting makes worse. Only early in the AM, nichole Work4 stairs, feels the ant knee pain. occasionally hikes on weekends but knee doesn't seem to bother him. maybe standing extended time can irritate knees but does note locking his knees. He is working on breaking that habit though. Back of the knee swelling started after [place] ride [place] to [place] ([place]and went away and recently started coming back in past 2 weeks. Pt reports arm pain started in Jan 2024 but no ARELI. Feels like it is getting better but still there . initally was in post delt to elbow now more post elbow. incline chest press w/free weights, reverse flys, bench press-mostly exercises w/Habd and Hadd. cross arm stretch is very tight and bending elbow makes worse. Sleeping on it aggrevates it. holding a pillwo helps a lot. Taking shirts off inc pain Treatment Goals Patient/Caregiver Goals Be able to work, workout w/o pain, sleep without pain, improve mobility PT-OP-C Subjective Start: 05/12/24 17:51 Freq: Status: Active Protocol: Document 06/29/24 07:24 AB (Rec: 06/29/24 08:16 AB Laptop) OP-PT Subjective Patient Comments Patient Comments Jordan reports L shoulder is a lot better, feels slight impingement end ROM, R knee could be better comments one week is fine next week it is not fine. Pain during exercise R knee persists. AROM L shoulder 144 deg start of session. joint line circumference L knee 41.5 cm R knee 43.4 cm start of session . PT-OP-D Balance Start: 05/12/24 17:51 Freq: Status: Active Protocol: Document 05/13/24 13:01 [facility] (Rec: 05/13/24 13:50 [facility] [id number]) Balance Tests Single Limb Standing Single Limb- Right >30 sec some pain in knee Single Limb- Left >30 sec PT-OP-G Mobility & Gait Start: 05/12/24 17:51 Freq: Status: Active Protocol: Document 05/13/24 13:01 [facility] (Rec: 05/13/24 13:50 [facility] [id number]) OP Gait Assessment Comments Gait Comments dec trunk motion, dec UE movement, dec slight R push off PT-OP-J Posture/Palpation/Skin Start: 05/12/24 17:51 Freq: Status: Active Protocol: Document 06/16/24 07:34 [facility] (Rec: 06/16/24 08:21 [facility] [id number]) Posture Evaluation Nallely Postural Classification System Nallely Postural Classifications Posterior/Anterior Elbow Flexion Test 3 Lumbar Protective Mechanism Left AP 3 Lumbar Protective Mechanism Right AP 3 Lumbar Protective Mechanism Left PA 4 Lumbar Protective Mechanism Right PA 4 PT-OP-K Range of Motion Start: 05/12/24 17:51 Freq: Status: Active Protocol: Document 05/13/24 13:01 [facility] (Rec: 05/13/24 13:50 [facility] [id number]) Cervical Spine Range of Motion Cervical Spine Active Degrees Flexion 68 Extension 60 Rotation Left 71 Rotation Right 74 Lateral Flexion Left 50 Lateral Flexion Right 51 Comments 51 deg R rot thoraicc, L 46 deg Shoulder Goniometric Range of Motion Shoulder ROM Limitations Comments equal ROM but painf ul w/flex, abd >90 and ER Ankle and Foot Goniometric Range of Motion Ankle and Foot ROM Limitations Comments >4 in knee to wall PT-OP-L Special Tests Start: 05/12/24 17:51 Freq: Status: Active Protocol: Document 05/13/24 13:01 [facility] (Rec: 05/13/24 13:50 [facility] [id number]) Special Tests Shoulder Special Tests [place] Impingement Comments positive l Neer Impingement Comments neg Knee Special Tests Hector Test Comments neg Thessaly Test 20 Degrees Comments neg R Harding Chondromalacia Comments positive R ligamentous testing Comments neg (ACL, PCL, MCL , LCL) SLR Comments WFL HS Kareem Comments L quad tightnes, R RF and iliacus Neural Special Tests- Upper Body nerve tension Comments neg ulnar and radial, pos median PT-OP-M Strength Start: 05/12/24 17:51 Freq: Status: Active Protocol: Document 06/16/24 07:34 [facility] (Rec: 06/16/24 08:21 [facility] [id number]) Shoulder Strength Shoulder Manual Muscle Testing Left Flexion 4+ Good+ Extension 5 Normal Abduction (C5) 4+ Good+ Adduction 5 Normal External Rotation 4+ Good+ Internal Rotation 4+ Good+ Horizontal Abduction 5 Normal Horizontal Adduction 5 Normal Comments pain w/rotations Hip Strength Hip Manual Muscle Testing Right Flexion (L2) 5 Normal Extension (S1) 5 Normal Abduction 5 Normal Adduction 5 Normal External Rotation 5 Normal Internal Rotation 5 Normal Left Flexion (L2) 5 Normal Extension (S1) 5 Normal Abduction 5 Normal Adduction 5 Normal External Rotation 5 Normal Internal Rotation 5 Normal Knee Strength Knee Manual Muscle Testing Right Flexion (S2) 5 Normal Extension (L3) 5 Normal Left Flexion (S2) 5 Normal Extension (L3) 5 Normal Ankle/Foot Strength Ankle and Foot Manual Muscle Testing Right Dorsiflexion (L4) 5 Normal Plantarflexion (S1) 5 Normal Comments 20 heel raises PT-OP-Q Treatments Start: 05/12/24 17:51 Freq: Status: Active Protocol: Document 06/29/24 07:24 AB (Rec: 06/29/24 08:16 AB Laptop) Therapeutic Exercises Supine Exercises core Supine Exercise Name deep neck flexor head lift Side bilateral Reps/Minutes 7 sec X 10 Prone Exercises pigeon pose with thread the needle Prone Exercise Name HEP Side bilateral Reps/Minutes X 5 each side Comments verbal and visual cues plank Prone Exercise Name side plank ( forearm plank with alt hip ext to HEP) Reps/Minutes 7 sec X 10 Comments verbal cues Sidelying Exercises plank Sidelying Exercise Name 1. side plank Side bilateral Reps/Minutes 7 sec X 8 Standing Exercises Lat stretch at wall Standing Exercise Name HEP Side bilateral Reps/Minutes 60 sec X 2 L X 1 R Comments verbal and visual cues towel slide flexion Standing Exercise Name with band step off and lower with band HEP Resistance level one band Equipment Used X 10 Comments verbal and visual cues, monitored for pain Other Exercises quadruped Other Exercise Name 1. UE lift 2 LE lift ( bear walk fwd and back on HEP) Reps/Minutes X8 for 7 sec Comments Verbal cues to avoid extending lumbar spine Manual Therapy Treatment Consent Patient gave verbal consent for manual Yes treatment Soft Tissue Mobilization posterior Body Location L lat and rhomboids, UT and levator scap Mobilization Type Cross-Friction,Rolling, Sustained Pressure Intensity/Depth Moderate Body Position Sidelying Comments cupping deltoid sidelying pec Body Location L major/minor Mobilization Type Rolling,Sustained Pressure Intensity/Depth Moderate Body Position Hooklying Comments w/abd Joint Mobilizations Scap Joint L scap Grade IV Comments add and inf glides - PT-OP-R Modalities Start: 05/12/24 17:51 Freq: Status: Active Protocol: Document 06/29/24 07:24 AB (Rec: 06/29/24 08:16 AB Laptop) Hot Pack/Cold Pack Treatment R knee Patient Position Hooklying Patient Tolerance Good Comments during manual for sholder reports knee pain with lunge is less post, but not eliminated PT-OP-T Assessment and Plan Start: 05/12/24 17:51 Freq: Status: Active Protocol: Document 06/29/24 07:24 AB (Rec: 06/29/24 08:16 AB Laptop) Physical Therapy Assessment Goals squat [facility]ci Goal (LTG) Pt will be able to squat w/o inc pain. 06/16-improving w/light weight LTG Duration 07/22 activity Short Term Goal (STG) Pt will be able to do all dressing w/o inc pain STG Duration achieved 06/16 [facility]ci Goal (LTG) Pt will be able to do all UE wt lifting including bench press and flys w/o inc pain 06/16-light weight w/o issue LTG Duration 07/22 strength Claims Coordinator Goal (LTG) Pt will score at least 4/5 EFT , LPM in all planes and 5/5 UE and LE MMT to show improved stability to allow return to typical activity. 06/16-improving Assessment Summary Assessment AROM L shoulder 151 deg end of session. Pain with lateral lunge right persists, but reports is less post use of ice. Patient ed to decrease depth of lunges and squats at gym to avoid medial knee pain and continue to ice at home 10 -15min pillow case between skin and ice pack. Physical Therapy Plan Frequency and Duration Frequency of Treatment 1x/Week Duration of treatment (weeks) 10 Plan of Care Start Date 05/13/24 Plan of Care End Date 07/22/24 Therapeutic Interventions Therapeutic Interventions Balance Training,Gait Training ,Home Exercise Program,Joint Mobilizations,Manual Therapy, Neuromuscular Re-education, Patient/Caregiver Education, Self-Care/Home Management,Soft Tissue Mobilization,Taping, Therapeutic Activities, Therapeutic Exercises Modalities Cold Pack/Ice Massage,Electric Stimulation,Hot Packs, Infrared Therapy,Ultrasound Next Visit Focus/Plan Next Note Type Treatment Note Next Visit Plan wall posture, review core , cont to work LUE and thoracic mobility/assess fritz to thread the needle in pigeon pose.
--- NOTE | 2024-07-08 08:30 | PT.OTN ---
Current Diagnoses Pain in left shoulder (07/08/24) Pain in right knee (07/08/24) Physical Therapy Treatment Note PT-OP-A Visit Information Start: 05/12/24 17:51 Freq: Status: Active Protocol: Document 07/08/24 07:31 [facility] (Rec: 07/08/24 08:30 [facility] [id number]) Out-Patient Physical Therapy Visit Information Visit Information Visit Type Progress Note Visit Start Time 07:32 Visit Stop Time 08:15 Visit Number 9 Number of PINION SORTER Visits 0 PT-OP-B Current Condition Start: 05/12/24 17:51 Freq: Status: Active Protocol: Document 05/13/24 13:01 [facility] (Rec: 05/13/24 13:50 [facility] [id number]) Current Condition History of Current Condition Current Complaints R knee pain, L UE pain History of Current Condition in 2018, pt was in the middle of kneeling squat w/R knee fwd and went o stand up and felt a pop and there was a sharp pain in ant med knee. He was in the field so couldn't just go home. It has been consistant since. When squatting, down is fine but coming up there is a point where it feels like a knot trying to pull through the knee. MOst recently the post knee has been feeling swollen constantly. Friday, fri and friday works out (chest and legs alt). 5 days a week does stair stepper for 30 min a time which doesn't bother knee but does note the more swollen feeling in back of knee but after 15 min on the stair stepper, goes away. Sitting makes worse. Only early in the AM, nichole gdown stairs, feels the ant knee pain. occasionally hikes on weekends but knee doesn't seem to bother him. maybe standing extended time can irritate knees but does note locking his knees. He is working on breaking that habit though. Back of the knee swelling started after [place] ride [place] to [place] ([place]and went away and recently started coming back in past 2 weeks. Pt reports arm pain started in Jan 2024 but no ARELI. Feels like it is getting better but still there . initally was in post delt to elbow now more post elbow. incline chest press w/free weights, reverse flys, bench press-mostly exercises w/Habd and Hadd. cross arm stretch is very tight and bending elbow makes worse. Sleeping on it aggrevates it. holding a pillwo helps a lot. Taking shirts off inc pain Treatment Goals Patient/Caregiver Goals Be able to work, workout w/o pain, sleep without pain, improve mobility PT-OP-C Subjective Start: 05/12/24 17:51 Freq: Status: Active Protocol: Document 07/08/24 07:31 [facility] (Rec: 07/08/24 08:30 [id number]-PT Subjective Patient Comments Patient Comments Pt reports he felt restriction w/a weird motion. Across the body is still a limit. the knee is hit and miss. Some days it feels really good and he can go through a full workout and some days it just flares up. LIfted heavy yesterday for leg day and was fine with 80kg squats. unweighted lunges were uncomfortable. PT-OP-D Balance Start: 05/12/24 17:51 Freq: Status: Active Protocol: Document 05/13/24 13:01 [facility] (Rec: 05/13/24 13:50 [id number] Balance Tests Single Limb Standing Single Limb- Right >30 sec some pain in knee Single Limb- Left >30 sec PT-OP-G Mobility & Gait Start: 05/12/24 17:51 Freq: Status: Active Protocol: Document 05/13/24 13:01 [facility] (Rec: 05/13/24 13:50 [id number] OP Gait Assessment Comments Gait Comments dec trunk motion, dec UE movement, dec slight R push off PT-OP-J Posture/Palpation/Skin Start: 05/12/24 17:51 Freq: Status: Active Protocol: Document 07/08/24 07:31 [facility] (Rec: 07/08/24 08:30 [facility] [id number]) Posture Evaluation Nallely Postural Classification System Nallely Postural Classifications Posterior/Anterior Elbow Flexion Test 3 Lumbar Protective Mechanism Left AP 3 Lumbar Protective Mechanism Right AP 3 Lumbar Protective Mechanism Left PA 4 Lumbar Protective Mechanism Right PA 4 PT-OP-K Range of Motion Start: 05/12/24 17:51 Freq: Status: Active Protocol: Document 05/13/24 13:01 [facility] (Rec: 05/13/24 13:50 [facility] [id number]) Cervical Spine Range of Motion Cervical Spine Active Degrees Flexion 68 Extension 60 Rotation Left 71 Rotation Right 74 Lateral Flexion Left 50 Lateral Flexion Right 51 Comments 51 deg R rot thoraicc, L 46 deg Shoulder Goniometric Range of Motion Shoulder ROM Limitations Comments equal ROM but painf ul w/flex, abd >90 and ER Ankle and Foot Goniometric Range of Motion Ankle and Foot ROM Limitations Comments >4 in knee to wall PT-OP-L Special Tests Start: 05/12/24 17:51 Freq: Status: Active Protocol: Document 05/13/24 13:01 [facility] (Rec: 05/13/24 13:50 [facility] [id number]) Special Tests Shoulder Special Tests [place] Impingement Comments positive l Neer Impingement Comments neg Knee Special Tests Hector Test Comments neg Thessaly Test 20 Degrees Comments neg R [place] Chondromalacia Comments positive R ligamentous testing Comments neg (ACL, PCL, MCL , LCL) SLR Comments WFL HS Kareem Comments L quad tightnes, R RF and iliacus Neural Special Tests- Upper Body nerve tension Comments neg ulnar and radial, pos median PT-OP-M Strength Start: 05/12/24 17:51 Freq: Status: Active Protocol: Document 07/08/24 07:31 [facility] (Rec: 07/08/24 08:30 [facility] [id number]) Shoulder Strength Shoulder Manual Muscle Testing Left Flexion 5 Normal Extension 5 Normal Abduction (C5) 5 Normal Adduction 5 Normal External Rotation 5 Normal Internal Rotation 5 Normal Horizontal Abduction 5 Normal Horizontal Adduction 5 Normal Comments tightness w/ER Elbow/Forearm Strength Elbow and Forearm Manual Muscle Testing Left Flexion (C6) 5 Normal Extension (C7) 5 Normal Pronation 5 Normal Supination 5 Normal Hip Strength Hip Manual Muscle Testing Right Flexion (L2) 5 Normal Extension (S1) 5 Normal Abduction 5 Normal Adduction 5 Normal External Rotation 5 Normal Internal Rotation 5 Normal Left Flexion (L2) 5 Normal Extension (S1) 5 Normal Abduction 5 Normal Adduction 5 Normal External Rotation 5 Normal Internal Rotation 5 Normal Knee Strength Knee Manual Muscle Testing Right Flexion (S2) 5 Normal Extension (L3) 5 Normal Left Flexion (S2) 5 Normal Extension (L3) 5 Normal Ankle/Foot Strength Ankle and Foot Manual Muscle Testing Left Dorsiflexion (L4) 5 Normal Plantarflexion (S1) 5 Normal Comments 20 heel raises Right Dorsiflexion (L4) 5 Normal Plantarflexion (S1) 5 Normal Comments 20 heel raises PT-OP-Q Treatments Start: 05/12/24 17:51 Freq: Status: Active Protocol: Document 07/08/24 07:31 [facility] (Rec: 07/08/24 08:30 [facility] [id number]) Therapeutic Exercises Supine Exercises core Supine Exercise Name manaul facilitation through LEs DL diagonal to L Reps/Minutes 1 min Standing Exercises hip hike Standing Exercise Name cues core and glute med and dec back ext Side bilateral Reps/Minutes 15 ea lunges Standing Exercise Name fwd Side bilateral Reps/Minutes 2x10 Comments working on hip position w/ mirror-cues needed Manual Therapy Treatment Consent Patient gave verbal consent for manual Yes treatment Soft Tissue Mobilization pec Body Location L major/minor Mobilization Type Rolling,Sustained Pressure Intensity/Depth Moderate Body Position Hooklying Comments w/abd Joint Mobilizations innominate Comments R ER c/r hooklying hip Comments R inf glide c/r Scap Comments SC AP and inf glide c/r ribs Comments caudal L ribs PT-OP-R Modalities Start: 05/12/24 17:51 Freq: Status: Active Protocol: Document 06/29/24 07:24 AB (Rec: 06/29/24 08:16 AB Laptop) Hot Pack/Cold Pack Treatment R knee Patient Position Hooklying Patient Tolerance Good Comments during manual for sholder reports knee pain with lunge is less post, but not eliminated PT-OP-T Assessment and Plan Start: 05/12/24 17:51 Freq: Status: Active Protocol: Document 07/08/24 07:31 [facility] (Rec: 07/08/24 08:30 [facility] [id number]) Physical Therapy Assessment Goals squat Carpet Cleaning Technician Goal (LTG) Pt will be able to squat w/o inc pain. 06/16-improving w/light weight 07/08-can sometimes do full weight w/o inc pain LTG Duration 6/ activity Short Term Goal (STG) Pt will be able to do all dressing w/o inc pain STG Duration achieved 06/16 Intermediate Goal (LTG) Pt will be able to do all UE wt lifting including bench press and flys w/o inc pain /-light weight w/o issue LTG Duration achieved 07/08 strength Carpet Cleaning Technician Goal (LTG) Pt will score at least 4/5 EFT , LPM in all planes and 5/5 UE and LE MMT to show improved stability to allow return to typical activity. 06/16-improving 07/08-achieved UE/LE-except shoulder pain w/ER, partially achieved w/LPM and EFT LTG Duration 08/12 Assessment Summary Assessment Pt progressing well w/PT and has lessened symptoms w/LUE w/ less difficulty w/activity. He has much improved strength of core, LE and UE but is still limited. He does still occasionally have difficulty w /lunges and squat activities and encouraged to monitor diet and closer look at form w/ lunges and SL activity and pt does show dec glute med use. He would benefit from cont PT to work on mobilityto dec pain and improve function fully. Physical Therapy Plan Frequency and Duration Frequency of Treatment 1x/Week Duration of treatment (weeks) 5 Plan of Care Start Date 07/08/24 Plan of Care End Date 08/12/24 Therapeutic Interventions Therapeutic Interventions Balance Training,Gait Training ,Home Exercise Program,Joint Mobilizations,Manual Therapy, Neuromuscular Re-education, Patient/Caregiver Education, Self-Care/Home Management,Soft Tissue Mobilization,Taping, Therapeutic Activities, Therapeutic Exercises Modalities Cold Pack/Ice Massage,Electric Stimulation,Hot Packs, Infrared Therapy,Ultrasound Next Visit Focus/Plan Next Note Type Treatment Note Next Visit Plan review lat step down and hip hike, lunge form Cont to work for full cross body LUE motion
--- NOTE | 2024-07-08 08:31 | PT.OPPOC ---
Physical, Occupational & Speech Therapy At [facility] Current Diagnoses Pain in left shoulder (07/08/24) Pain in right knee (07/08/24) Visit Care Team Role Provider Type TEMITOPE Sánchez Attending Provider Advanced [employer] Mechanic Family Provider Primary Care Provider Referring Provider Specialty: Family Practice Address: [address] [place] [address], [id number] Phone: Fax: Email: [email or web address] Plan Of Care PT-OP-B Current Condition Start: 05/12/24 17:51 Freq: Status: Active Protocol: Document 05/13/24 13:01 [facility] (Rec: 05/13/24 13:50 [facility] [id number]) Current Condition History of Current Condition Current Complaints R knee pain, L UE pain History of Current Condition in 2018, pt was in the middle of kneeling squat w/R knee fwd and went o stand up and felt a pop and there was a sharp pain in ant med knee. He was in the field so couldn't just go home. It has been consistant since. When squatting, down is fine but coming up there is a point where it feels like a knot trying to pull through the knee. MOst recently the post knee has been feeling swollen constantly. Friday, fri and friday works out (chest and legs alt). 5 days a week does stair stepper for 30 min a time which doesn't bother knee but does note the more swollen feeling in back of knee but after 15 min on the stair stepper, goes away. Sitting makes worse. Only early in the AM, nichole gdown stairs, feels the ant knee pain. occasionally hikes on weekends but knee doesn't seem to bother him. maybe standing extended time can irritate knees but does note locking his knees. He is working on breaking that habit though. Back of the knee swelling started after [place] car ride [place] to [place] (2017[place]and went away and recently started coming back in past 2 weeks. Pt reports arm pain started in Jan 2024 but no ARELI. Feels like it is getting better but still there . initally was in post delt to elbow now more post elbow. incline chest press w/free weights, reverse flys, bench press-mostly exercises w/Habd and Hadd. cross arm stretch is very tight and bending elbow makes worse. Sleeping on it aggrevates it. holding a pillwo helps a lot. Taking shirts off inc pain Treatment Goals Patient/Caregiver Goals Be able to work, workout w/o pain, sleep without pain, improve mobility PT-OP-T Assessment and Plan Start: 05/12/24 17:51 Freq: Status: Active Protocol: Document 07/08/24 07:31 [facility] (Rec: 07/08/24 08:30 [facility] [id number]) Physical Therapy Assessment Goals squat Stock House Worker Goal (LTG) Pt will be able to squat w/o inc pain. 06/16-improving w/light weight 07/08-can sometimes do full weight w/o inc pain LTG Duration 08/08 activity Short Term Goal (STG) Pt will be able to do all dressing w/o inc pain STG Duration achieved 06/16 Stock House Worker Goal (LTG) Pt will be able to do all UE wt lifting including bench press and flys w/o inc pain 06/16-light weight w/o issue LTG Duration achieved 07/08 strength Stock House Worker Goal (LTG) Pt will score at least 4/5 EFT , LPM in all planes and 5/5 UE and LE MMT to show improved stability to allow return to typical activity. 06/16-improving 07/08-achieved UE/LE-except shoulder pain w/ER, partially achieved w/LPM and EFT LTG Duration 6 Assessment Summary Assessment Pt progressing well w/PT and has lessened symptoms w/LUE w/ less difficulty w/activity. He has much improved strength of core, LE and UE but is still limited. He does still occasionally have difficulty w /lunges and squat activities and encouraged to monitor diet and closer look at form w/ lunges and SL activity and pt does show dec glute med use. He would benefit from cont PT to work on mobilityto dec pain and improve function fully. Physical Therapy Plan Frequency and Duration Frequency of Treatment 1x/Week Duration of treatment (weeks) 5 Plan of Care Start Date 07/08/24 Plan of Care End Date 08/12/24 Therapeutic Interventions Therapeutic Interventions Balance Training,Gait Training ,Home Exercise Program,Joint Mobilizations,Manual Therapy, Neuromuscular Re-education, Patient/Caregiver Education, Self-Care/Home Management,Soft Tissue Mobilization,Taping, Therapeutic Activities, Therapeutic Exercises Modalities Cold Pack/Ice Massage,Electric Stimulation,Hot Packs, Infrared Therapy,Ultrasound Next Visit Focus/Plan Next Note Type Treatment Note Next Visit Plan review lat step down and hip hike, lunge form Cont to work for full cross body LUE motion Plan of Care Dates Plan of Care Start Date 07/08/24 Plan of Care End Date 08/12/24 Electronically Signed by: Maribell Beasley, PT 07/08/24 0831 If you are in agreement with this Plan of Care, please return a signed and dated copy. I have reviewed this Plan of Care and certify that the skilled therapy services above are required to meet the patient?s needs. Physician Signature Date Printed Name and Credentials Clinical Instructor Signature Printed Name and Credentials
--- NOTE | 2024-07-15 08:47 | PT.OTN ---
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 He was in the field so couldn't just go home. It has been consistant since. When squatting, down is fine but coming up there is a point where it feels like a knot trying to pull through the knee. MOst recently the post knee has been feeling swollen constantly. Friday, fri and friday works out (chest and legs alt). 5 days a week does stair stepper for 30 min a time which doesn't bother knee but does note the more swollen feeling in back of knee but after 15 min on the stair stepper, goes away. Sitting makes worse. Only early in the AM, nichole gdown stairs, feels the ant knee pain. occasionally hikes on weekends but knee doesn't seem to bother him. maybe standing extended time can irritate knees but does note locking his knees. He is working on breaking that habit though. Back of the knee swelling started after [place] car ride [place] ([place]and went away and recently started coming back in past 2 weeks. Pt reports arm pain started in Jan 2024 but no ARELI. Feels like it is getting better but still there . initally was in post delt to elbow now more post elbow. incline chest press w/free weights, reverse flys, bench press-mostly exercises w/Habd and Hadd. cross arm stretch is very tight and bending elbow makes worse. Sleeping on it aggrevates it. holding a pillwo helps a lot. Taking shirts off inc pain Treatment Goals Patient/Caregiver Goals Be able to work, workout w/o pain, sleep without pain, improve mobility PT-OP-C Subjective Start: 05/12/24 17:51 Freq: Status: Active Protocol: Document 07/15/24 07:20 [facility] (Rec: 07/15/24 08:47 AB Laptop) OP-PT Subjective Patient Comments Patient Comments Patient reports some days are better with the right knee at the gym. Patient reports having to ice the right knee once a week. Patient reports the shoulder is good, is no longer avoiding certain motions. AROM Left shoulder 145 deg flexion start of session. PT-OP-D Balance Start: 05/12/24 17:51 Freq: Status: Active Protocol: Document 05/13/24 13:01 [facility] (Rec: 05/13/24 13:50 [facility] [id number]) Balance Tests Single Limb Standing Single Limb- Right >30 sec some pain in knee Single Limb- Left >30 sec PT-OP-G Mobility & Gait Start: 05/12/24 17:51 Freq: Status: Active Protocol: Document 05/13/24 13:01 [facility] (Rec: 05/13/24 13:50 [facility] [id number]) OP Gait Assessment Comments Gait Comments dec trunk motion, dec UE movement, dec slight R push off PT-OP-J Posture/Palpation/Skin Start: 05/12/24 17:51 Freq: Status: Active Protocol: Document 07/08/24 07:31 [facility] (Rec: 07/08/24 08:30 [facility] [id number]) Posture Evaluation [facility] Postural Classification System Nallely Postural Classifications Posterior/Anterior Elbow Flexion Test 3 Lumbar Protective Mechanism Left AP 3 Lumbar Protective Mechanism Right AP 3 Lumbar Protective Mechanism Left PA 4 Lumbar Protective Mechanism Right PA 4 PT-OP-K Range of Motion Start: 05/12/24 17:51 Freq: Status: Active Protocol: Document 05/13/24 13:01 [facility] (Rec: 05/13/24 13:50 [facility] [id number]) Cervical Spine Range of Motion Cervical Spine Active Degrees Flexion 68 Extension 60 Rotation Left 71 Rotation Right 74 Lateral Flexion Left 50 Lateral Flexion Right 51 Comments 51 deg R rot thoraicc, L 46 deg Shoulder Goniometric Range of Motion Shoulder ROM Limitations Comments equal ROM but painf ul w/flex, abd >90 and ER Ankle and Foot Goniometric Range of Motion Ankle and Foot ROM Limitations Comments >4 in knee to wall PT-OP-L Special Tests Start: 05/12/24 17:51 Freq: Status: Active Protocol: Document 05/13/24 13:01 [facility] (Rec: 05/13/24 13:50 [facility] [id number]) Special Tests Shoulder Special Tests [place] Impingement Comments positive l Neer Impingement Comments neg Knee Special Tests Hector Test Comments neg Thessaly Test 20 Degrees Comments neg R [place] Chondromalacia Comments positive R ligamentous testing Comments neg (ACL, PCL, MCL , LCL) SLR Comments WFL HS Kareem Comments L quad tightnes, R RF and iliacus Neural Special Tests- Upper Body nerve tension Comments neg ulnar and radial, pos median PT-OP-M Strength Start: 05/12/24 17:51 Freq: Status: Active Protocol: Document 07/08/24 07:31 [facility] (Rec: 07/08/24 08:30 [facility] [id number]) Shoulder Strength Shoulder Manual Muscle Testing Left Flexion 5 Normal Extension 5 Normal Abduction (C5) 5 Normal Adduction 5 Normal External Rotation 5 Normal Internal Rotation 5 Normal Horizontal Abduction 5 Normal Horizontal Adduction 5 Normal Comments tightness w/ER Elbow/Forearm Strength Elbow and Forearm Manual Muscle Testing Left Flexion (C6) 5 Normal Extension (C7) 5 Normal Pronation 5 Normal Supination 5 Normal Hip Strength Hip Manual Muscle Testing Right Flexion (L2) 5 Normal Extension (S1) 5 Normal Abduction 5 Normal Adduction 5 Normal External Rotation 5 Normal Internal Rotation 5 Normal Left Flexion (L2) 5 Normal Extension (S1) 5 Normal Abduction 5 Normal Adduction 5 Normal External Rotation 5 Normal Internal Rotation 5 Normal Knee Strength Knee Manual Muscle Testing Right Flexion (S2) 5 Normal Extension (L3) 5 Normal Left Flexion (S2) 5 Normal Extension (L3) 5 Normal Ankle/Foot Strength Ankle and Foot Manual Muscle Testing Left Dorsiflexion (L4) 5 Normal Plantarflexion (S1) 5 Normal Comments 20 heel raises Right Dorsiflexion (L4) 5 Normal Plantarflexion (S1) 5 Normal Comments 20 heel raises PT-OP-Q Treatments Start: 05/12/24 17:51 Freq: Status: Active Protocol: Document 07/15/24 07:20 [facility] (Rec: 07/15/24 08:47 AB Laptop) Therapeutic Exercises Supine Exercises supine shoulder flexion Supine Exercise Name with R LE in Kareem stretch Side left Equipment Used 2 lb Reps/Minutes X 10 with 3 sec hold Comments verbal cues Sitting Exercises hip flex with band Sitting Exercise Name with alt UE movement 1. seated pre[place] 2. rot may seated 3. standing rot mar Resistance level 4 band at feet Reps/Minutes X 15 each Comments verbal and visual cues Standing Exercises pec stretch Side left Reps/Minutes 60 sec Comments post manual to inc ROM lateral step up Side bilateral Reps/Minutes X 15 each Comments VC for buttocks back PNF Standing Exercise Name D1 and D2 then Cheerleaders HEP Reps/Minutes X 10 each exercise without band D1 2 L only Cheerleaders bilatera with L1 Comments Level one band for cheerleaders hip hike Standing Exercise Name cues to keep alignment Side bilateral Reps/Minutes X10 Manual Therapy Treatment Consent Patient gave verbal consent for manual Yes treatment Soft Tissue Mobilization posterior Body Location L lat and rhomboids, UT and levator scap Mobilization Type Cross-Friction,Instrument Assisted,Rolling,Sustained Pressure Comments cupping with and without exe ( D1 D2) to L lat pec Body Location L major/minor Mobilization Type Cross-Friction,Instrument Assisted,Rolling,Sustained Pressure Intensity/Depth Moderate Body Position Hooklying Comments cupping to pec Joint Mobilizations GHJ Joint L shoulder Direction inf and AP Grade IV Body Position Hooklying PT-OP-R Modalities Start: 05/12/24 17:51 Freq: Status: Active Protocol: Document 06/29/24 07:24 [facility] (Rec: 06/29/24 08:16 AB Laptop) Hot Pack/Cold Pack Treatment R knee Patient Position Hooklying Patient Tolerance Good Comments during manual for sholder reports knee pain with lunge is less post, but not eliminated PT-OP-T Assessment and Plan Start: 05/12/24 17:51 Freq: Status: Active Protocol: Document 07/15/24 07:20 [facility] (Rec: 07/15/24 08:47 AB Laptop) Physical Therapy Assessment Goals squat Commercial Portfolio Manager Goal (LTG) Pt will be able to squat w/o inc pain. 06/16-improving w/light weight 07/08-can sometimes do full weight w/o inc pain LTG Duration 08/08 activity Short Term Goal (STG) Pt will be able to do all dressing w/o inc pain STG Duration achieved 06/16 Commercial Portfolio Manager Goal (LTG) Pt will be able to do all UE wt lifting including bench press and flys w/o inc pain 06/16-light weight w/o issue LTG Duration achieved 07/08 strength Commercial Portfolio Manager Goal (LTG) Pt will score at least 4/5 EFT , LPM in all planes and 5/5 UE and LE MMT to show improved stability to allow return to typical activity. 06/16-improving 07/08-achieved UE/LE-except shoulder pain w/ER, partially achieved w/LPM and EFT LTG Duration 08/12 Assessment Summary Assessment AROM L shoulder flexion 154 end of session. with R LE extended, patient able to reach 159 deg L shoulder flexion AROM. Physical Therapy Plan Frequency and Duration Frequency of Treatment 1x/Week Duration of treatment (weeks) 5 Plan of Care Start Date 07/08/24 Plan of Care End Date 08/12/24 Next Visit Focus/Plan Next Note Type Treatment Note Next Visit Plan review lat step down and hip hike, lunge form Cont to work for full cross body LUE motion band at feet standing and seated hip flex/ with and ,without rot with alt UE mvt, if review cheerleaders trial of lunge position X5 reps L LE retro X 5 reps R LE retro
--- NOTE | 2024-07-22 12:32 | PT.OTN ---
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 He was in the field so couldn't just go home. It has been consistant since. When squatting, down is fine but coming up there is a point where it feels like a knot trying to pull through the knee. MOst recently the post knee has been feeling swollen constantly. Friday, fri and friday works out (chest and legs alt). 5 days a week does stair stepper for 30 min a time which doesn't bother knee but does note the more swollen feeling in back of knee but after 15 min on the stair stepper, goes away. Sitting makes worse. Only early in the AM, nichole gdown stairs, feels the ant knee pain. occasionally hikes on weekends but knee doesn't seem to bother him. maybe standing extended time can irritate knees but does note locking his knees. He is working on breaking that habit though. Back of the knee swelling started after [place] ride [place] to [place] ([place]and went away and recently started coming back in past 2 weeks. Pt reports arm pain started in Jan 2024 but no ARELI. Feels like it is getting better but still there . initally was in post delt to elbow now more post elbow. incline chest press w/free weights, reverse flys, bench press-mostly exercises w/Habd and Hadd. cross arm stretch is very tight and bending elbow makes worse. Sleeping on it aggrevates it. holding a pillwo helps a lot. Taking shirts off inc pain Treatment Goals Patient/Caregiver Goals Be able to work, workout w/o pain, sleep without pain, improve mobility PT-OP-C Subjective Start: 05/12/24 17:51 Freq: Status: Active Protocol: Document 07/22/24 07:32 [facility] (Rec: 07/22/24 12:31 [id number]-PT Subjective Patient Comments Patient Comments pt reports no issues with shoulder. pt notes knee is up/ down w/being irritated PT-OP-D Balance Start: 05/12/24 17:51 Freq: Status: Active Protocol: Document 05/13/24 13:01 [facility] (Rec: 05/13/24 13:50 [facility] [id number]) Balance Tests Single Limb Standing Single Limb- Right >30 sec some pain in knee Single Limb- Left >30 sec PT-OP-G Mobility & Gait Start: 05/12/24 17:51 Freq: Status: Active Protocol: Document 05/13/24 13:01 [facility] (Rec: 05/13/24 13:50 [facility] [id number]) OP Gait Assessment Comments Gait Comments dec trunk motion, dec UE movement, dec slight R push off PT-OP-J Posture/Palpation/Skin Start: 05/12/24 17:51 Freq: Status: Active Protocol: Document 07/08/24 07:31 [facility] (Rec: 07/08/24 08:30 [facility] [id number]) Posture Evaluation [facility] Postural Classification System [facility] Postural Classifications Posterior/Anterior Elbow Flexion Test 3 Lumbar Protective Mechanism Left AP 3 Lumbar Protective Mechanism Right AP 3 Lumbar Protective Mechanism Left PA 4 Lumbar Protective Mechanism Right PA 4 PT-OP-K Range of Motion Start: 05/12/24 17:51 Freq: Status: Active Protocol: Document 05/13/24 13:01 [facility] (Rec: 05/13/24 13:50 [facility] [id number]) Cervical Spine Range of Motion Cervical Spine Active Degrees Flexion 68 Extension 60 Rotation Left 71 Rotation Right 74 Lateral Flexion Left 50 Lateral Flexion Right 51 Comments 51 deg R rot thoraicc, L 46 deg Shoulder Goniometric Range of Motion Shoulder ROM Limitations Comments equal ROM but painf ul w/flex, abd >90 and ER Ankle and Foot Goniometric Range of Motion Ankle and Foot ROM Limitations Comments >4 in knee to wall PT-OP-L Special Tests Start: 05/12/24 17:51 Freq: Status: Active Protocol: Document 05/13/24 13:01 [facility] (Rec: 05/13/24 13:50 [facility] [id number]) Special Tests Shoulder Special Tests [place] Impingement Comments positive l Neer Impingement Comments neg Knee Special Tests Hector Test Comments neg Thessaly Test 20 Degrees Comments neg R Harding Chondromalacia Comments positive R ligamentous testing Comments neg (ACL, PCL, MCL , LCL) SLR Comments WFL HS Kareem Comments L quad tightnes, R RF and iliacus Neural Special Tests- Upper Body nerve tension Comments neg ulnar and radial, pos median PT-OP-M Strength Start: 05/12/24 17:51 Freq: Status: Active Protocol: Document 07/08/24 07:31 [facility] (Rec: 07/08/24 08:30 [facility] [id number]) Shoulder Strength Shoulder Manual Muscle Testing Left Flexion 5 Normal Extension 5 Normal Abduction (C5) 5 Normal Adduction 5 Normal External Rotation 5 Normal Internal Rotation 5 Normal Horizontal Abduction 5 Normal Horizontal Adduction 5 Normal Comments tightness w/ER Elbow/Forearm Strength Elbow and Forearm Manual Muscle Testing Left Flexion (C6) 5 Normal Extension (C7) 5 Normal Pronation 5 Normal Supination 5 Normal Hip Strength Hip Manual Muscle Testing Right Flexion (L2) 5 Normal Extension (S1) 5 Normal Abduction 5 Normal Adduction 5 Normal External Rotation 5 Normal Internal Rotation 5 Normal Left Flexion (L2) 5 Normal Extension (S1) 5 Normal Abduction 5 Normal Adduction 5 Normal External Rotation 5 Normal Internal Rotation 5 Normal Knee Strength Knee Manual Muscle Testing Right Flexion (S2) 5 Normal Extension (L3) 5 Normal Left Flexion (S2) 5 Normal Extension (L3) 5 Normal Ankle/Foot Strength Ankle and Foot Manual Muscle Testing Left Dorsiflexion (L4) 5 Normal Plantarflexion (S1) 5 Normal Comments 20 heel raises Right Dorsiflexion (L4) 5 Normal Plantarflexion (S1) 5 Normal Comments 20 heel raises PT-OP-Q Treatments Start: 05/12/24 17:51 Freq: Status: Active Protocol: Document 07/22/24 07:32 [facility] (Rec: 07/22/24 12:31 [facility] [id number]) Therapeutic Exercises Standing Exercises self mob Standing Exercise Name ankle DF w/band ant ankle and foot on step Side right Equipment Used L6 band Reps/Minutes 10 Comments encouraged to roll out quads and ITB at home lateral step up Side bilateral Equipment Used mirror for position ; 8 in step (dec from 16 in d/t dec control) Reps/Minutes x10 Comments VC for buttocks back glute med isometric Standing Exercise Name HEP review Side bilateral Reps/Minutes one minute each side Comments min cues needed Manual Therapy Treatment Consent Patient gave verbal consent for manual Yes treatment Soft Tissue Mobilization knee Body Location R Mobilization Type Rolling,Strumming,Sustained Pressure Comments along patellar tendon, ITB, Vastus lateralis -cupping and manual w/quad set, circumferential w/quad set Joint Mobilizations R patella Comments superior, inf, med glide/tilt; suction w/plunger; compression w/quad set PT-OP-R Modalities Start: 05/12/24 17:51 Freq: Status: Active Protocol: Document 06/29/24 07:24 [facility] (Rec: 06/29/24 08:16 [facility] Laptop) Hot Pack/Cold Pack Treatment R knee Patient Position Hooklying Patient Tolerance Good Comments during manual for sholder reports knee pain with lunge is less post, but not eliminated PT-OP-T Assessment and Plan Start: 05/12/24 17:51 Freq: Status: Active Protocol: Document 07/22/24 07:32 [facility] (Rec: 07/22/24 12:31 [facility] [id number]) Physical Therapy Assessment Goals squat Manager Embalmer Funeral Director Goal (LTG) Pt will be able to squat w/o inc pain. 06/16-improving w/light weight 07/08-can sometimes do full weight w/o inc pain 07/22-still occ painful LTG Duration 08/26 activity Short Term Goal (STG) Pt will be able to do all dressing w/o inc pain STG Duration achieved 06/16 Halfway Goal (LTG) Pt will be able to do all UE wt lifting including bench press and flys w/o inc pain 06/16-light weight w/o issue LTG Duration achieved 07/08 strength Manager Embalmer Funeral Director Goal (LTG) Pt will score at least 4/5 EFT , LPM in all planes and 5/5 UE and LE MMT to show improved stability to allow return to typical activity. 06/16-improving 07/08-achieved UE/LE-except shoulder pain w/ER, partially achieved w/LPM and EFT 07/22-still working on strength and motor control LTG Duration 08/26 Assessment Summary Assessment Pt had improved knee tracking after manual. Does have some restriction and poor positioning of R foot along w/ fascial tensions at thigh and patellar tendon that likely limit her. Physical Therapy Plan Frequency and Duration Frequency of Treatment 1x/Week Duration of treatment (weeks) 5 Plan of Care Start Date 07/22/24 Plan of Care End Date 08/26/24 Therapeutic Interventions Therapeutic Interventions Balance Training,Gait Training ,Home Exercise Program,Joint Mobilizations,Manual Therapy, Neuromuscular Re-education, Patient/Caregiver Education, Self-Care/Home Management,Soft Tissue Mobilization,Taping, Therapeutic Activities, Therapeutic Exercises Modalities Cold Pack/Ice Massage,Electric Stimulation,Hot Packs, Infrared Therapy,Ultrasound Next Visit Focus/Plan Next Note Type Treatment Note Next Visit Plan work on mechanics w/SL activities w/RLE for appropriate knee tracking; R ankle mobs for improved knee tracking (midfoot and rearfoot )
--- NOTE | 2024-08-12 12:00 | PT.OTN ---
Current Diagnoses Pain in left shoulder (08/12/24) Pain in right knee (08/12/24) Physical Therapy Treatment Note PT-OP-A Visit Information Start: 05/12/24 17:51 Freq: Status: Active Protocol: Document 08/12/24 09:50 [facility] (Rec: 08/12/24 12:00 [facility] [id number]) Out-Patient Physical Therapy Visit Information Visit Information Visit Type Discharge Summary Visit Start Time 09:54 Visit Stop Time 10:34 Visit Number 12 Number of FINANCIAL AID MANAGER Visits 0 PT-OP-B Current Condition Start: 05/12/24 17:51 Freq: Status: Active Protocol: Document 05/13/24 13:01 [facility] (Rec: 05/13/24 13:50 [facility] [id number]) Current Condition History of Current Condition Current Complaints R knee pain, L UE pain History of Current in 2018, pt was in the middle of kneeling squat w/R Condition knee fwd and went o stand up and felt a pop and there was a sharp pain in ant med knee. He was in the field so couldn't just go home. It has been consistant since. When squatting, down is fine but coming up there is a point where it feels like a knot trying to pull through the knee. MOst recently the post knee has been feeling swollen constantly. Friday, fri and friday works out ( chest and legs alt). 5 days a week does stair stepper for 30 min a time which doesn't bother knee but does note the more swollen feeling in back of knee but after 15 min on the stair stepper, goes away. Sitting makes worse. Only early in the AM, nichole gdown stairs, feels the ant knee pain. occasionally hikes on weekends but knee doesn't seem to bother him. maybe standing extended time can irritate knees but does note locking his knees. He is working on breaking that habit though. Back of the knee swelling started after [place] car ride [place] to [place] (2017[place]and went away and recently started coming back in past 2 weeks. Pt reports arm pain started in Jan 2024 but no ARELI. Feels like it is getting better but still there. initally was in post delt to elbow now more post elbow. incline chest press w/free weights, reverse flys, bench press-mostly exercises w/Habd and Hadd. cross arm stretch is very tight and bending elbow makes worse. Sleeping on it aggrevates it. holding a pillwo helps a lot. Taking shirts off inc pain Treatment Goals Patient/Caregiver Be able to work, workout w/o pain, sleep without pain, Goals improve mobility PT-OP-C Subjective Start: 05/12/24 17:51 Freq: Status: Active Protocol: Document 08/12/24 09:50 [facility] (Rec: 08/12/24 12:00 [id number]-PT Subjective Patient Comments Patient Comments Pt reports weird nodule and feeling of pulling past is much less. Shoulder is still great. PT-OP-D Balance Start: 05/12/24 17:51 Freq: Status: Active Protocol: Document 05/13/24 13:01 [facility] (Rec: 05/13/24 13:50 [id number] Balance Tests Single Limb Standing Single Limb- Right >30 sec some pain in knee Single Limb- Left >30 sec PT-OP-G Mobility & Gait Start: 05/12/24 17:51 Freq: Status: Active Protocol: Document 05/13/24 13:01 [facility] (Rec: 05/13/24 13:50 [facility] [id number]) OP Gait Assessment Comments Gait Comments dec trunk motion, dec UE movement, dec slight R push off PT-OP-J Posture/Palpation/Skin Start: 05/12/24 17:51 Freq: Status: Active Protocol: Document 08/12/24 09:50 [facility] (Rec: 08/12/24 12:00 [facility] [id number]) Posture Evaluation [facility] Postural Classification System Elbow Flexion Test 4 Lumbar Protective 4 Mechanism Left AP Lumbar Protective 4 Mechanism Right AP Lumbar Protective 5 Mechanism Left PA Lumbar Protective 5 Mechanism Right PA PT-OP-K Range of Motion Start: 05/12/24 17:51 Freq: Status: Active Protocol: Document 05/13/24 13:01 [facility] (Rec: 05/13/24 13:50 [facility] [id number]) Cervical Spine Range of Motion Cervical Spine Active Degrees Flexion 68 Extension 60 Rotation Left 71 Rotation Right 74 Lateral Flexion Left 50 Lateral Flexion 51 Right Comments 51 deg R rot thoraicc, L 46 deg Shoulder Goniometric Range of Motion Shoulder ROM Limitations Comments equal ROM but painf ul w/flex, abd >90 and ER Ankle and Foot Goniometric Range of Motion Ankle and Foot ROM Limitations Comments >4 in knee to wall PT-OP-L Special Tests Start: 05/12/24 17:51 Freq: Status: Active Protocol: Document 05/13/24 13:01 [facility] (Rec: 05/13/24 13:50 [facility] [id number]) Special Tests Shoulder Special Tests [place] Impingement Comments positive l Neer Impingement Comments neg Knee Special Tests Hector Test Comments neg Thessaly Test 20 Degrees Comments neg R Harding Chondromalacia Comments positive R ligamentous testing Comments neg (ACL, PCL, MCL , LCL) SLR Comments WFL HS Kareem Comments L quad tightnes, R RF and iliacus Neural Special Tests- Upper Body nerve tension Comments neg ulnar and radial, pos median PT-OP-M Strength Start: 05/12/24 17:51 Freq: Status: Active Protocol: Document 07/08/24 07:31 [facility] (Rec: 07/08/24 08:30 [facility] [id number]) Shoulder Strength Shoulder Manual Muscle Testing Left Flexion 5 Normal Extension 5 Normal Abduction (C5) 5 Normal Adduction 5 Normal External Rotation 5 Normal Internal Rotation 5 Normal Horizontal Abduction 5 Normal Horizontal Adduction 5 Normal Comments tightness w/ER Elbow/Forearm Strength Elbow and Forearm Manual Muscle Testing Left Flexion (C6) 5 Normal Extension (C7) 5 Normal Pronation 5 Normal Supination 5 Normal Hip Strength Hip Manual Muscle Testing Right Flexion (L2) 5 Normal Extension (S1) 5 Normal Abduction 5 Normal Adduction 5 Normal External Rotation 5 Normal Internal Rotation 5 Normal Left Flexion (L2) 5 Normal Extension (S1) 5 Normal Abduction 5 Normal Adduction 5 Normal External Rotation 5 Normal Internal Rotation 5 Normal Knee Strength Knee Manual Muscle Testing Right Flexion (S2) 5 Normal Extension (L3) 5 Normal Left Flexion (S2) 5 Normal Extension (L3) 5 Normal Ankle/Foot Strength Ankle and Foot Manual Muscle Testing Left Dorsiflexion (L4) 5 Normal Plantarflexion (S1) 5 Normal Comments 20 heel raises Right Dorsiflexion (L4) 5 Normal Plantarflexion (S1) 5 Normal Comments 20 heel raises PT-OP-Q Treatments Start: 05/12/24 17:51 Freq: Status: Active Protocol: Document 08/12/24 09:50 [facility] (Rec: 08/12/24 12:00 [facility] [id number]) Therapeutic Exercises Supine Exercises supine shoulder flexion Supine Exercise Name incline bench press Side bilateral Equipment Used 25# Reps/Minutes 8 Comments PT assess for click Standing Exercises SL Standing Exercise squat in mirror Name Side bilateral Reps/Minutes 8 step down Standing Exercise lat: 8in x2, 12in x5, 16 in x2 Name Side right Comments cues knee position lunges Standing Exercise SL w/band around knees Name Side bilateral Reps/Minutes 10 ea Comments cues hip and knee position Manual Therapy Treatment Consent Patient gave verbal Yes consent for manual treatment Soft Tissue Mobilization pec Body Location L major/minor Mobilization Type Rolling,Sustained Pressure Intensity/Depth Moderate Body Position Hooklying Comments w/ chest press Joint Mobilizations Scap Joint SC distraction c/r AC Joint PA and AP on clavicle GHJ Comments L post c/r PT-OP-R Modalities Start: 05/12/24 17:51 Freq: Status: Active Protocol: Document 06/29/24 07:24 [facility] (Rec: 06/29/24 08:16 [facility] Laptop) Hot Pack/Cold Pack Treatment R knee Patient Position Hooklying Patient Tolerance Good Comments during manual for sholder reports knee pain with lunge is less post, but not eliminated PT-OP-T Assessment and Plan Start: 05/12/24 17:51 Freq: Status: Active Protocol: Document 08/12/24 09:50 [facility] (Rec: 08/12/24 12:00 [facility] [id number]) Physical Therapy Assessment Goals squat [facility] Goal (LTG) Pt will be able to squat w/o inc pain. 06/16-improving w/light weight 07/08-can sometimes do full weight w/o inc pain 07/22-still occ painful LTG Duration achieved 6/5 activity Short Term Goal (STG Pt will be able to do all dressing w/o inc pain ) STG Duration achieved 06/16 Supervisory Lifeguard Goal (LTG) Pt will be able to do all UE wt lifting including bench press and flys w/o inc pain 06/16-light weight w/o issue LTG Duration achieved 07/08 strength Supervisory Lifeguard Goal (LTG) Pt will score at least 4/5 EFT, LPM in all planes and 5 /5 UE and LE MMT to show improved stability to allow return to typical activity. 06/16-improving 07/08-achieved UE/LE-except shoulder pain w/ER, partially achieved w/LPM and EFT 07/22-still working on strength and motor control LTG Duration achieved 08/12 Assessment Summary Assessment Pt has returned to full heavy lifting w/o issue. some clickng in L shoulder that improved after manual. He cont to have to focus to work on alignment w/squat SL and step down. Pt indep w/HEP and has met goals w/no pain recently. DC to [facility] Physical Therapy Plan Discharge Physical Therapy Discharge Reasons Goals Met
== END 2024-08-20 12:53 | disposition home or self-care (01) ==
LOC: PHYS 09:45
PROVIDERS: Family Provider Nurse Practitioner Family; PCP Nurse Practitioner Family; Referring Provider Nurse Practitioner Family; Visit Provider Nurse Practitioner Family
DX: M25.512 Pain in left shoulder (principal); M25.561 Pain in right knee
CPT/HCPCS: 97110; 97140; 97162; 97535